=== PATIENT | male | born 1965 | race Caucasian/White ===

== ENCOUNTER 2020-06-06 12:39 | Inpatient (IN) | payer OTHER ==
--- NOTE | 2020-06-06 13:11 | BHS.RME ---
Substance Use & Tx History - Substance Use History Heroin Substance amount: 1 bundle Frequency of use: Daily Substance route: Oral Date of Last Use: 06/05/20 Nicotine Substance amount: 1 pack Frequency of use: Daily Date of Last Use: 06/06/20 Physical/Psych/Mental Status - Behavior General Behavior: Increased activity (restlessness, agitation) Eye Contact: Normal - Cooperativeness Cooperativeness: Cooperative - Thinking Thought Processes: Tight, Logical, Goal Directed - Physical Health Problems Is patient presently having any pain?: No Does patient presently have any injuries (include location): No Does patient currently have a fever: No Is patient : No COWS - Scale Resting Pulse: 1= [place] 81-100 Sweatin= Beads of Sweat on Face Restless Observation: 1= Difficult to Sit Still Pupil Size: 1= Pupils >than Normal Bone or Joint Aches: 4=Acute Joint/Muscle Pain Runny Nose/ Eye Tearin= Runny Nose/Eyes GI Upset > 30mins: 0= None Tremor Observation: 2= Slight Tremor Visible Yawning Observation: 2= >3x During Session Anxiety or Irritability: 2=Irritable/Anxious Goose Flesh Skin: 3=Piloerection COWS Score: 21
--- NOTE | 2020-06-06 13:46 | HP ---
COWS - Scale Resting Pulse: 1= [place] 81-100 Sweatin= Beads of Sweat on Face Restless Observation: 1= Difficult to Sit Still Pupil Size: 1= Pupils >than Normal Bone or Joint Aches: 4=Acute Joint/Muscle Pain Runny Nose/ Eye Tearin= Runny Nose/Eyes GI Upset > 30mins: 0= None Tremor Observation: 2= Slight Tremor Visible Yawning Observation: 2= >3x During Session Anxiety or Irritability: 2=Irritable/Anxious Goose Flesh Skin: 3=Piloerection COWS Score: 21 CIWA Score - Admission Criteria OASAS Guidelines: Admission for Medically Managed Detox: Requires at least one of the followin. CIWA greater than 12 2. Seizures within the past 24 hours 3. Delirium tremens within the past 24 hours 4. Hallucinations within the past 24 hours 5. Acute intervention needed for co occurring medical disorder 6. Acute intervention needed for co occurring psychiatric disorder 7. Severe withdrawal that cannot be handled at a lower level of care (continued vomiting, continued diarrhea, abnormal vital signs) requiring intravenous medication and/or fluids 8. Admitting History and Physical - Admission Chief Complaint: Mr. Floyd is a 54 yo man who presents to [facility] stating "I want to get off this shit for good". History of Present Illness: Mr. Floyd is a 54 yo man who presents to [facility] stating "I want to get off this shit for good". She has had intermittent relapses since 2009.. He was at [facility] today after passing out in [place] with no meds. PMH: HTN, HLD, COPD, JANELLE, DM, GERD PSH: none Psych: insomnia SOC: homeless on streets Legal: none - Substance Use History Heroin Substance amount: 1 bundle Frequency of use: Daily Substance route: Oral Date of Last Use: 06/05/20 Began age 19y. No ODs. No Narcan at home Nicotine Substance amount: 1 pack Frequency of use: Daily Date of Last Use: 06/06/20 Fist use age 19y. Methadone program: 185 mg in 2006: [facility]. States someone recently gave him some Suboxone program until March of this year when he said "fuck it" Patient Name: Padilla Floyd Date: 1965 Address: [address] [place] [address] Sex: Male Rx Written Rx Dispensed Drug Quantity Days Supply Prescriber Name Payment Method Dispenser 03/31/2020 03/31/2020 buprenorphine-naloxone 8-2 mg sl film 90 30 Latrice Loveica Insurance [employer] #[id number] 03/04/2020 03/04/2020 buprenorphine-naloxone 8-2 mg sl tablet 30 30 Philippe Duque) Insurance [facility] 02/04/2020 02/06/2020 buprenorphine-naloxone 8-2 mg sl film 63 21 Ziemba Perfecto, [place] Insurance [employer] #[id number] 01/11/2020 01/17/2020 buprenorphine-naloxone 8-2 mg sl film 3 3 Orville Lester MD Insurance [employer] #[id number] 12/24/2019 12/24/2019 buprenorphine-naloxone 8-2 mg sl film 45 15 Zisarah [place], [place] Insurance [employer] #[id number] 12/10/2019 12/11/2019 buprenorphine-naloxone 8-2 mg sl film 45 15 Christopher Cobb Shine Insurance [employer]ade #[id number] History Source: Patient Limitations to Obtaining History: No Limitations Admission ROS [facility] Allergies/Adverse Reactions: Allergies Allergy/AdvReac Type Severity Reaction Status Date / Time No Known Allergies Allergy Verified 06/06/20 15:25 Exam Limitations: No Limitations - Ebola screening Have you traveled outside of the country in the last 21 days: No Have you been sick,other than usual withdrawal symptoms: No Do you have a fever: No - Review of Systems Constitutional: Unintentional Wgt. Loss (30 lb in 2 mos) EENT: reports: No Symptoms Reported Respiratory: reports: SOB with Exertion (hx COPD) Cardiac: reports: No Symptoms Reported GI: reports: Diarrhea, Nausea : reports: No Symptoms Reported Musculoskeletal: reports: Back Pain (chronic) Integumentary: reports: No Symptoms Reported Neuro: reports: Headache Endocrine: reports: Other (no home glucose testing done) Hematology: reports: No Symptoms Reported Psychiatric: reports: Anxious Patient History - Smoking Cessation Smoking history: Current every day smoker Have you smoked in the past 12 months: Yes Aproximately how many cigarettes per day: 20 Hx Chewing Tobacco Use: No Initiated information on smoking cessation: Yes 'Breaking Loose' booklet given: 06/06/20 - Substances abused Heroin Substance route: Injection Frequency: Daily Amount used: 10-12 BAGS Age of first use: 19 Date of last use: 06/04/20 Admission Physical Exam [facility] - Physical General Appearance: Yes: Nourished, Mild Distress HEENTM: Yes: EOMI, Hearing grossly Normal, Normocephalic, Normal Voice Respiratory: Yes: Lungs Clear, Normal Breath Sounds Neck: Yes: Within Normal Limits, Supple Breast: Yes: Breast Exam Deferred Cardiology: Yes: Regular Rhythm, Regular Rate, S1, S2 Abdominal: Yes: Normal Bowel Sounds, Non Tender, Flat Back: Yes: Normal Inspection Musculoskeletal: Yes: Gait Steady Extremities: Yes: Normal Inspection, Non-Tender Neurological: Yes: Alert, Normal Response Integumentary: Yes: Within Normal Limits - Diagnostic (1) Opioid dependence with withdrawal Current Visit: Yes Status: Acute (2) HTN (hypertension) Current Visit: No Status: Chronic (3) HLD (hyperlipidemia) Current Visit: No Status: Chronic (4) COPD (chronic obstructive pulmonary disease) Current Visit: No Status: Chronic Qualifiers: COPD type: unspecified COPD Qualified Code(s): J44.9 - Chronic obstructive pulmonary disease, unspecified (5) Seasonal allergies Current Visit: No Status: Chronic (6) Diabetes type 2, controlled Current Visit: Yes Status: Chronic (7) GERD (gastroesophageal reflux disease) Current Visit: No Status: Chronic Cleared for Admission [facility] - Detox or Rehab [facility] Level of Care: Medically Managed Detox Regimen/Protocol: Methadone Inpatient Rehab Admission - Rehab Decision to Admit Inpatient rehab admission?: No
[2020-06-06 15:31] VITALS: BMI 25.2
[2020-06-06] MEDS ORDERED: NICOTINE POLACRILEX 2 MG GUM BUC PRN (15:58)
[2020-06-06] MEDS ORDERED: ACETAMINOPHEN 325 MG TABLET (FP) PO PRN ×2 (15:58)
[2020-06-06] MEDS ORDERED: ONDANSETRON *ODT* 4 MG TABLET SL PRN (15:58)
[2020-06-06] MEDS ORDERED: MAG HYDROX/AL HYDROX/SIMETH 30 ML UNIT-DOSE CUP PO PRN (15:58)
[2020-06-06] MEDS ORDERED: MENTHOL/PHENOL 1 EACH UD MM PRN (15:58)
[2020-06-06] MEDS ORDERED: BISMUTH SUBSALICYLATE 524 MG/30 ML UD PO PRN (15:58)
[2020-06-06] MEDS ORDERED: MAGNESIUM HYDROX 2400MG/30ML ORAL SUSPENSION 30 ML CUP PO PRN (15:58)
[2020-06-06] MEDS ORDERED: METHADONE HCL 10 MG TABLET (FOR DETOX USE ONLY) PO ONE (15:58)
[2020-06-06] MEDS ORDERED: MAGNESIUM CITRATE 300 ML BOTTLE PO PRN (15:58)
[2020-06-06] MEDS: INSULIN SLIDING SCALE (NOVOLOG) 1 VIAL SQ SCH ×2 (17:50→21:36)
[2020-06-06] MEDS: NICOTINE 21 MG/24 HOURS TOPICAL PATCH TD SCH (18:18)
[2020-06-06] MEDS: hydrOXYzine PAMOATE 25 MG CAPSULE (FP) PO SCH ×2 (18:20→21:34)
[2020-06-06] MEDS: THIAMINE HCL 100 MG TABLET (FP) PO SCH (21:34)
[2020-06-06] MEDS: cloNIDine HCL 0.1 MG TABLET PO PRN (21:34)
[2020-06-06] MEDS: MELATONIN 5 MG TABLETS PO SCH (21:35)
[2020-06-07] MEDS: hydrOXYzine PAMOATE 25 MG CAPSULE (FP) PO SCH ×5 (05:54→21:03)
[2020-06-07] MEDS: INSULIN SLIDING SCALE (NOVOLOG) 1 VIAL SQ SCH ×4 (07:55→21:07)
[2020-06-07] MEDS ORDERED: INSULIN SLIDING SCALE (NOVOLOG) 1 VIAL SQ ONE (07:57)
[2020-06-07] MEDS ORDERED: METHADONE HCL 5 MG TABLET (FOR DETOX USE ONLY) ONE (09:32)
[2020-06-07] MEDS ORDERED: METHADONE HCL 10 MG TABLET (FOR DETOX USE ONLY) ONE (09:33)
[2020-06-07] MEDS ORDERED: METHADONE (DETOX) 20 MG, METHADONE (DETOX) 5 MG PO ONE (10:00)
[2020-06-07 10:28] LABS: HEMATOCRIT 38.9 % (35.4-49); HEMOGLOBIN 13.5 GM/dL (11.7-16.9); MCH 30.9 pg (25.7-33.7); MCHC 34.7 g/dl (32.0-35.9); MEAN PLT VOLUME 8.9 fl (7.5-11.1); PLATELET COUNT 61 K/MM3 (134-434); RBC 4.37 M/mm3 (4.00-5.60); RDW 13.9 % (11.9-15.9); WHITE BLOOD COUNT 4.8 K/mm3 (4.0-10.0)
[2020-06-07] MEDS: NICOTINE 21 MG/24 HOURS TOPICAL PATCH TD SCH (10:29)
[2020-06-07] MEDS: PRENATAL VITAMINS W/ FOLIC ACID TABLET (FP) PO SCH (10:29)
[2020-06-07] MEDS: diazePAM 5 MG TABLET PO PRN ×3 (10:30→19:36)
[2020-06-07 10:39] LABS: ALBUMIN 3.3 g/dl (3.4-5.0); BLOOD UREA NITROGEN 13.1 mg/dL (7-18); POTASSIUM 3.5 mmol/L (3.5-5.1)
[2020-06-07 10:44] LABS: BILIRUBIN,TOTAL 0.8 mg/dL (0.2-1); CREATININE 0.7 mg/dL (0.55-1.3); TOT PROT 6.9 g/dl (6.4-8.2)
--- NOTE | 2020-06-07 11:19 | PN ---
S COWS - Scale Resting Pulse: 1= [place] 81-100 Sweatin= No chills or Flushing Restless Observation: 1= Difficult to Sit Still Pupil Size: 1= Pupils >than Normal Bone or Joint Aches: 2= Severe Diffuse Aches Runny Nose/ Eye Tearin= Runny Nose/Eyes GI Upset > 30mins: 3= Vomiting/Diarrhea Tremor Observation of Outstretched Hands: 2= Slight Tremor Visible Yawning Observation: 1= 1-2x During Session Anxiety or Irritability: 2=Irritable/Anxious Goose Flesh Skin: 0=Smooth Skin COWS Score: 15 S Progress Note (SOAP) Subjective: alert,irritable,anxious,interrupted sleep,tremor,pain in the body and ba ck,nausea,diarrhea Objective: 06/07/20 11:15 Vital Signs Temperature 97.4 F L 06/07/20 08:52 Pulse Rate 82 06/07/20 08:52 Respiratory Rate 20 06/07/20 08:52 Blood Pressure 150/75 06/07/20 08:52 O2 Sat by Pulse Oximetry (%) 98 06/07/20 06:33 06/07/20 11:15 Laboratory Last Values WBC 4.8 K/mm3 (4.0-10.0) 06/07/20 08:00 RBC 4.37 M/mm3 (4.00-5.60) 06/07/20 08:00 Hgb 13.5 GM/dL (11.7-16.9) 06/07/20 08:00 Hct 38.9 % (35.4-49) 06/07/20 08:00 MCV 89.0 fl (80-96) 06/07/20 08:00 MCH 30.9 pg (25.7-33.7) 06/07/20 08:00 MCHC 34.7 g/dl (32.0-35.9) 06/07/20 08:00 RDW 13.9 % (11.9-15.9) 06/07/20 08:00 Plt Count 61 K/MM3 (134-434) L 06/07/20 08:00 MPV 8.9 fl (7.5-11.1) 06/07/20 08:00 Sodium 138 mmol/L (136-145) 06/07/20 08:00 Potassium 3.5 mmol/L (3.5-5.1) 06/07/20 08:00 Chloride 103 mmol/L (98-107) 06/07/20 08:00 Carbon Dioxide 27 mmol/L (21-32) 06/07/20 08:00 Anion Gap 7 MMOL/L (8-16) L 06/07/20 08:00 BUN 13.1 mg/dL (7-18) 06/07/20 08:00 Creatinine 0.7 mg/dL (0.55-1.3) 06/07/20 08:00 Est GFR (CKD-EPI)AfAm 124.00 06/07/20 08:00 Est GFR (CKD-EPI)NonAf 106.99 06/07/20 08:00 POC Glucometer 175 UNITS (80-120) 06/07/20 05:53 Random Glucose 168 mg/dL (74-106) H 06/07/20 08:00 Calcium 9.0 mg/dL (8.5-10.1) 06/07/20 08:00 Total Bilirubin 0.8 mg/dL (0.2-1) 06/07/20 08:00 AST 29 U/L (15-37) 06/07/20 08:00 ALT 30 U/L (13-61) 06/07/20 08:00 Alkaline Phosphatase 64 U/L (45-117) 06/07/20 08:00 Total Protein 6.9 g/dl (6.4-8.2) 06/07/20 08:00 Albumin 3.3 g/dl (3.4-5.0) L 06/07/20 08:00 Assessment: 06/07/20 11:15 withdrawal symptom Plan: continue detox methadone regimen,to add valium 10 mgs po q 4hrs prn for severe withdrawal,,bgm monitoring with insulin coverage
--- NOTE | 2020-06-07 12:13 | EKG ---
Test Reason : Blood Pressure : / mmHG Vent. Rate : 077 BPM Atrial Rate : 077 BPM P-R Int : 164 ms QRS Dur : 102 ms QT Int : 390 ms P-R-T Axes : 072 012 050 degrees QTc Int : 441 ms NORMAL SINUS RHYTHM NORMAL ECG NO PREVIOUS ECGS AVAILABLE Confirmed by MD Diaz Daniel ([id number]) on 06/07/2020 12:12:56 PM Referred By: Confirmed By:Hector Diaz MD
[2020-06-07] MEDS: cloNIDine HCL 0.1 MG TABLET PO PRN ×2 (13:18→21:03)
[2020-06-07] MEDS: THIAMINE HCL 100 MG TABLET (FP) PO SCH (21:03)
[2020-06-07] MEDS: MELATONIN 5 MG TABLETS PO SCH (22:43)
[2020-06-08] MEDS: diazePAM 5 MG TABLET PO PRN ×5 (01:07→20:33)
[2020-06-08] MEDS: hydrOXYzine PAMOATE 25 MG CAPSULE (FP) PO SCH ×2 (05:37→09:46)
[2020-06-08] MEDS: INSULIN SLIDING SCALE (NOVOLOG) 1 VIAL SQ SCH ×4 (07:48→21:36)
[2020-06-08] MEDS: PRENATAL VITAMINS W/ FOLIC ACID TABLET (FP) PO SCH (09:44)
[2020-06-08] MEDS: NICOTINE 21 MG/24 HOURS TOPICAL PATCH TD SCH (09:44)
[2020-06-08] MEDS ORDERED: METHADONE HCL 10 MG TABLET (FOR DETOX USE ONLY) PO ONE (10:00)
--- NOTE | 2020-06-08 11:26 | PN ---
BHS COWS - Scale Resting Pulse: 0= FL 80 or Below Sweatin= Chills/Flushing Restless Observation: 1= Difficult to Sit Still Pupil Size: 0= Normal to Room Light Bone or Joint Aches: 1= Mild Discomfort Runny Nose/ Eye Tearin= Runny Nose/Eyes GI Upset > 30mins: 0= None Tremor Observation of Outstretched Hands: 1= Tremor [place], Not Seen Yawning Observation: 1= 1-2x During Session Anxiety or Irritability: 2=Irritable/Anxious Goose Flesh Skin: 0=Smooth Skin COWS Score: 9 BHS Progress Note (SOAP) Subjective: sweats shakes irritable agitation restless body aches Objective: 06/08/20 11:23 Vital Signs Temperature 99.1 F 06/08/20 08:49 Pulse Rate 67 06/08/20 08:49 Respiratory Rate 18 06/08/20 08:49 Blood Pressure 151/73 06/08/20 08:49 O2 Sat by Pulse Oximetry (%) 100 06/08/20 05:27 Laboratory Tests 06/06/20 06/06/20 06/06/20 15:50 16:40 21:30 WBC RBC Hgb Hct MCV MCH MCHC RDW Plt Count MPV Sodium Potassium Chloride Carbon Dioxide Anion Gap BUN Creatinine Est GFR (CKD-EPI)AfAm Est GFR (CKD-EPI)NonAf POC Glucometer 267 174 194 Random Glucose Calcium Total Bilirubin AST ALT Alkaline Phosphatase Total Protein Albumin Syphilis Serology HIV Ag/Ab Combo Qual 06/07/20 06/07/20 06/07/20 05:53 08:00 08:00 WBC RBC Hgb Hct MCV MCH MCHC RDW Plt Count MPV Sodium Potassium Chloride Carbon Dioxide Anion Gap BUN Creatinine Est GFR (CKD-EPI)AfAm Est GFR (CKD-EPI)NonAf POC Glucometer 175 Random Glucose Calcium Total Bilirubin AST ALT Alkaline Phosphatase Total Protein Albumin Syphilis Serology Non-reactive HIV Ag/Ab Combo Qual Negative 06/07/20 06/07/20 06/07/20 08:00 08:00 11:53 WBC 4.8 RBC 4.37 Hgb 13.5 Hct 38.9 MCV 89.0 MCH 30.9 MCHC 34.7 RDW 13.9 Plt Count 61 L MPV 8.9 Sodium 138 Potassium 3.5 Chloride 103 Carbon Dioxide 27 Anion Gap 7 L BUN 13.1 Creatinine 0.7 Est GFR (CKD-EPI)AfAm 124.00 Est GFR (CKD-EPI)NonAf 106.99 POC Glucometer 151 Random Glucose 168 H Calcium 9.0 Total Bilirubin 0.8 AST 29 ALT 30 Alkaline Phosphatase 64 Total Protein 6.9 Albumin 3.3 L Syphilis Serology HIV Ag/Ab Combo Qual 06/07/20 06/07/20 06/08/20 16:25 20:55 05:35 WBC RBC Hgb Hct MCV MCH MCHC RDW Plt Count MPV Sodium Potassium Chloride Carbon Dioxide Anion Gap BUN Creatinine Est GFR (CKD-EPI)AfAm Est GFR (CKD-EPI)NonAf POC Glucometer 192 215 151 Random Glucose Calcium Total Bilirubin AST ALT Alkaline Phosphatase Total Protein Albumin Syphilis Serology HIV Ag/Ab Combo Qual labs noted aaox3 ambulating no acute distress hypertension noted; pt has been non-compliant with taking his hypertension medication. pt states has not been taking any medication in 4months. pt was advised will start with HTN mediation while in our care. pt in agreement Assessment: 06/08/20 11:25 withdrawals Plan: continue detox lisinopril ordered norvasc ordered increase fluids
[2020-06-08] MEDS: LISINOPRIL 10 MG TABLET (FP) PO SCH (12:51)
[2020-06-08] MEDS: amLODIPine BESYLATE 5 MG TABLET (FP) PO SCH (12:51)
[2020-06-08] MEDS: cloNIDine HCL 0.1 MG TABLET PO PRN (16:41)
[2020-06-08] MEDS: hydrOXYzine PAMOATE 25 MG CAPSULE (FP) PO PRN (16:41)
[2020-06-08] MEDS: METHOCARBAMOL 500 MG TABLET PO PRN (20:33)
[2020-06-08] MEDS: THIAMINE HCL 100 MG TABLET (FP) PO SCH (21:36)
[2020-06-08] MEDS: MELATONIN 5 MG TABLETS PO SCH (21:36)
[2020-06-09] MEDS: diazePAM 5 MG TABLET PO PRN ×5 (00:53→18:43)
[2020-06-09] MEDS: IBUPROFEN 400 MG TABLET (FP) PO PRN ×3 (05:50→18:43)
[2020-06-09] MEDS ORDERED: INSULIN SLIDING SCALE (NOVOLOG) 1 VIAL SQ ONE ×2 (07:25→11:01)
[2020-06-09] MEDS: INSULIN SLIDING SCALE (NOVOLOG) 1 VIAL SQ SCH ×4 (07:26→21:30)
[2020-06-09] MEDS: METHOCARBAMOL 500 MG TABLET PO PRN ×2 (08:38→14:46)
[2020-06-09] MEDS: hydrOXYzine PAMOATE 25 MG CAPSULE (FP) PO PRN ×3 (08:38→19:29)
[2020-06-09] MEDS ORDERED: METHADONE HCL 5 MG TABLET (FOR DETOX USE ONLY) ONE (09:22)
[2020-06-09] MEDS ORDERED: METHADONE HCL 10 MG TABLET (FOR DETOX USE ONLY) ONE (09:22)
[2020-06-09] MEDS ORDERED: METHADONE (DETOX) 10 MG, METHADONE (DETOX) 5 MG PO ONE (10:00)
[2020-06-09] MEDS: amLODIPine BESYLATE 5 MG TABLET (FP) PO SCH (10:45)
[2020-06-09] MEDS: LISINOPRIL 10 MG TABLET (FP) PO SCH (10:45)
[2020-06-09] MEDS: PRENATAL VITAMINS W/ FOLIC ACID TABLET (FP) PO SCH (10:45)
[2020-06-09] MEDS: NICOTINE 21 MG/24 HOURS TOPICAL PATCH TD SCH (10:46)
--- NOTE | 2020-06-09 11:10 | PN ---
BHS COWS - Scale Resting Pulse: 0= [place] 80 or Below Sweatin= Chills/Flushing Restless Observation: 0= Sits Still Pupil Size: 0= Normal to Room Light Bone or Joint Aches: 2= Severe Diffuse Aches Runny Nose/ Eye Tearin= None GI Upset > 30mins: 0= None Tremor Observation of Outstretched Hands: 1= Tremor [place], Not Seen Yawning Observation: 0= None Anxiety or Irritability: 1=Feels Anxious/Irritable Goose Flesh Skin: 0=Smooth Skin COWS Score: 5 BHS Progress Note (SOAP) Subjective: body aches tired weak interrupted sleep Objective: 06/09/20 11:08 Vital Signs Temperature 98.1 F 06/09/20 08:35 Pulse Rate 79 06/09/20 08:35 Respiratory Rate 17 06/09/20 08:35 Blood Pressure 131/81 06/09/20 08:35 O2 Sat by Pulse Oximetry (%) 100 06/09/20 05:35 Laboratory Tests 06/06/20 06/06/20 06/06/20 09:45 15:50 16:40 WBC RBC Hgb Hct MCV MCH MCHC RDW Plt Count MPV Sodium Potassium Chloride Carbon Dioxide Anion Gap BUN Creatinine Est GFR (CKD-EPI)AfAm Est GFR (CKD-EPI)NonAf POC Glucometer 267 174 Random Glucose Calcium Total Bilirubin AST ALT Alkaline Phosphatase Total Protein Albumin Syphilis Serology COVID-19 (ANGEL) Not detected HIV Ag/Ab Combo Qual 06/06/20 06/07/20 06/07/20 21:30 05:53 08:00 WBC RBC Hgb Hct MCV MCH MCHC RDW Plt Count MPV Sodium Potassium Chloride Carbon Dioxide Anion Gap BUN Creatinine Est GFR (CKD-EPI)AfAm Est GFR (CKD-EPI)NonAf POC Glucometer 194 175 Random Glucose Calcium Total Bilirubin AST ALT Alkaline Phosphatase Total Protein Albumin Syphilis Serology COVID-19 (ANGEL) HIV Ag/Ab Combo Qual Negative 06/07/20 06/07/20 06/07/20 08:00 08:00 08:00 WBC 4.8 RBC 4.37 Hgb 13.5 Hct 38.9 MCV 89.0 MCH 30.9 MCHC 34.7 RDW 13.9 Plt Count 61 L MPV 8.9 Sodium 138 Potassium 3.5 Chloride 103 Carbon Dioxide 27 Anion Gap 7 L BUN 13.1 Creatinine 0.7 Est GFR (CKD-EPI)AfAm 124.00 Est GFR (CKD-EPI)NonAf 106.99 POC Glucometer Random Glucose 168 H Calcium 9.0 Total Bilirubin 0.8 AST 29 ALT 30 Alkaline Phosphatase 64 Total Protein 6.9 Albumin 3.3 L Syphilis Serology Non-reactive COVID-19 (ANGEL) HIV Ag/Ab Combo Qual 06/07/20 06/07/20 06/07/20 11:53 16:25 20:55 WBC RBC Hgb Hct MCV MCH MCHC RDW Plt Count MPV Sodium Potassium Chloride Carbon Dioxide Anion Gap BUN Creatinine Est GFR (CKD-EPI)AfAm Est GFR (CKD-EPI)NonAf POC Glucometer 151 192 215 Random Glucose Calcium Total Bilirubin AST ALT Alkaline Phosphatase Total Protein Albumin Syphilis Serology COVID-19 (ANGEL) HIV Ag/Ab Combo Qual 06/08/20 06/08/20 06/08/20 05:35 11:50 16:34 WBC RBC Hgb Hct MCV MCH MCHC RDW Plt Count MPV Sodium Potassium Chloride Carbon Dioxide Anion Gap BUN Creatinine Est GFR (CKD-EPI)AfAm Est GFR (CKD-EPI)NonAf POC Glucometer 151 226 218 Random Glucose Calcium Total Bilirubin AST ALT Alkaline Phosphatase Total Protein Albumin Syphilis Serology COVID-19 (ANGEL) HIV Ag/Ab Combo Qual 06/08/20 06/09/20 06/09/20 20:37 05:49 10:50 WBC RBC Hgb Hct MCV MCH MCHC RDW Plt Count MPV Sodium Potassium Chloride Carbon Dioxide Anion Gap BUN Creatinine Est GFR (CKD-EPI)AfAm Est GFR (CKD-EPI)NonAf POC Glucometer 250 157 157 Random Glucose Calcium Total Bilirubin AST ALT Alkaline Phosphatase Total Protein Albumin Syphilis Serology COVID-19 (ANGEL) HIV Ag/Ab Combo Qual labs noted aaox3 ambulating no acute distress Assessment: 06/09/20 11:09 mild withdrawals Plan: continue detox increase fluids encouraged to get OOB and shower.
--- NOTE | 2020-06-09 20:17 | PN ---
[facility] CIWA - CIWA Score Nausea/Vomitin-Mild Nausea/No Vomiting (pt was placed on 1:1 observation for reported suicidal ideation with no plan or intent.) Muscle Tremors: 4-Moderate,w/Arms Extend Anxiety: 6 Agitation: 4-Moderately Restless Paroxysmal Sweats: No Perspiration Orientation: 1-Uncertain about Date Tacttile Disturbances: 0-None Auditory Disturbances: 1-Very Mild Visual Disturbances: 3-Moderate Sensitivity Headache: 3-Moderate CIWA-Ar Total Score: 23 S Progress Note (SOAP) Subjective: pt reports tremors ,WERNER , nausea , photophobia, no improvement in symptoms since admission . Pt endorses 1 pint/day alcohol x 1 year , reports tremors if not drinking alcohol, denies blackouts or seizures . Pt states he is feeling " awful , I want to " . per pt , he used to have rx for Seroquel 300 mg in the past and is interested in re-starting it. PMHX PMH: HTN, HLD, COPD, DM, GERD Active Medications Acetaminophen (Tylenol -) 650 mg PO Q6H PRN PRN Reason: PAIN LEVEL 4 - 6 Acetaminophen (Tylenol -) 650 mg PO Q6H PRN PRN Reason: FEVER Al Hydroxide/Mg Hydroxide (Mylanta Oral Suspension -) 30 ml PO Q6H PRN PRN Reason: DYSPEPSIA Amlodipine Besylate (Norvasc -) 5 mg PO DAILY [facility] Last Admin: 06/09/20 10:45 Dose: 5 mg Documented by: Bismuth Subsalicylate (Pepto-Bismol -) 524 mg PO Q1H PRN PRN Reason: DIARRHEA Diazepam (Valium -) 10 mg PO Q4H PRN PRN Reason: WITHDRAWAL(CONT SUBST) Stop: 06/10/20 09:11 Last Admin: 06/09/20 18:43 Dose: 10 mg Documented by: Eucalyptus/Menthol/Phenol/Sorbitol (Cepastat Lozenge -) 1 each MM Q4H PRN PRN Reason: SORE THROAT Stop: 06/12/20 15:58 Hydroxyzine Pamoate (Vistaril -) 25 mg PO Q4HWA PRN PRN Reason: AGITATION Stop: 06/12/20 15:58 Last Admin: 07/09/20 19:29 Dose: 25 mg Documented by: Ibuprofen (Motrin -) 400 mg PO Q6H PRN PRN Reason: PAIN LEVEL 1 - 3 Last Admin: 06/09/20 18:43 Dose: 400 mg Documented by: Insulin Aspart (Novolog Vial Sliding Scale -) 1 vial SQ [facility]; Protocol Last Admin: 06/09/20 17:05 Dose: 6 units Documented by: Lisinopril (Prinivil) 10 mg PO DAILY [facility] Last Admin: 06/09/20 10:45 Dose: 10 mg Documented by: Magnesium Citrate (Citroma -) 300 ml PO Q48H PRN PRN Reason: CONSTIPATION Magnesium Hydroxide (Milk Of Magnesia -) 30 ml PO PRN PRN PRN Reason: CONSTIPATION Melatonin (Melatonin) 5 mg PO [facility] Last Admin: 06/08/20 21:36 Dose: 5 mg Documented by: Methadone HCl (Dolophine -) 5 mg PO ONCE@0600 ONE Stop: 06/11/20 06:01 Methadone HCl (Dolophine -) 10 mg PO ONCE ONE Stop: 06/10/20 10:01 Methocarbamol (Robaxin -) 500 mg PO Q6H PRN PRN Reason: MUSCLE SPASMS Stop: 06/12/20 15:58 Last Admin: 06/09/20 14:46 Dose: 500 mg Documented by: Nicotine (Nicoderm Patch -) 21 mg TD DAILY [facility] Last Admin: 06/09/20 10:46 Dose: 21 mg Documented by: Nicotine Polacrilex (Nicorette Gum -) 2 mg BUC Q2H PRN PRN Reason: NICOTINE REPLACEMENT RX Ondansetron HCl (Zofran Odt -) 4 mg SL TID PRN PRN Reason: Nausea/Vomiting Stop: 06/12/20 15:59 Multivit/Folic Acid/Iron ( Vitamins (Sjr) -) 1 tab PO DAILY [facility] Last Admin: 06/09/20 10:45 Dose: 1 tab Documented by: Quetiapine Fumarate (Seroquel -) 25 mg PO [facility] Thiamine HCl (Vitamin B1 -) 100 mg PO [facility] Last Admin: 06/08/20 21:36 Dose: 100 mg Documented by: Objective: Vital Signs - 24 hr 06/08/20 06/09/20 06/09/20 20:29 05:35 08:35 Temperature 97.3 F L 98.0 F 98.1 F Pulse Rate 65 65 79 Respiratory 20 20 17 Rate Blood Pressure 127/69 143/70 131/81 O2 Sat by Pulse 100 100 Oximetry (%) 06/09/20 06/09/20 12:45 17:08 Temperature 98.4 F 98.2 F Pulse Rate 72 67 Respiratory 18 18 Rate Blood Pressure 134/71 142/61 O2 Sat by Pulse 99 Oximetry (%) Laboratory Results - last 24 hr 06/06/20 06/08/20 06/09/20 09:45 20:37 05:49 POC Glucometer 250 157 COVID-19 (ANGEL) Not detected 06/09/20 06/09/20 10:50 16:38 POC Glucometer 157 290 COVID-19 (ANGEL) TREMORS FAM UE , LYING IN BED W/ LIGHTS OFF IN THE ROOM . IRRITABLE, ANXIOUS , RESTLESS . Assessment: AUD in acute withdrawal Plan: Librium detox STAT 50 mg Librium d/c DIAZEPAM Quetiapine 25 mg @ hs CONTINUE 1:1 monitoring , to be reassessed by psychiatry in the a.m.
[2020-06-09] MEDS ORDERED: chlordiazePOXIDE HCL 25 MG CAPSULE PO PRN (20:19)
[2020-06-09] MEDS ORDERED: chlordiazePOXIDE HCL 25 MG CAPSULE PO ONE (20:19)
[2020-06-09] MEDS ORDERED: QUEtiapine FUMARATE 25 MG TABLET PO SCH (22:00)
[2020-06-09 22:20] VITALS: BP 149/76; PULSE 81; TEMP 97.7
[2020-06-09] MEDS: chlordiazePOXIDE HCL 25 MG CAPSULE PO SCH (22:41)
[2020-06-09] MEDS: THIAMINE HCL 100 MG TABLET (FP) PO SCH (22:41)
[2020-06-09] MEDS: MELATONIN 5 MG TABLETS PO SCH (22:41)
--- NOTE | 2020-06-09 23:46 | PN ---
[facility] Progress Note Note: Patient is on 1:1 for suicidal ideation was to leaving the floor. He reports that he wants Seroquel 300mg tablet oral which was given to him in the COVID ship by the health officers. Patient reports that he was never prescribed the medication by a psychiatrist and has never seen any provider since March. Seroquel 25mg tablet was prescribed and patient was informed that he will see a psychiatrist this morning. He became loud, combative, threatening, agitated and disruptive. 911 was called with the police and patient was transferred to [facility]. Vital Signs Temperature 97.7 F 06/09/20 21:17 Pulse Rate 81 06/09/20 21:17 Respiratory Rate 19 06/09/20 21:17 Blood Pressure 149/76 06/09/20 21:17 O2 Sat by Pulse Oximetry (%) 99 06/09/20 21:17 Laboratory Last Values WBC 4.8 K/mm3 (4.0-10.0) 06/07/20 08:00 RBC 4.37 M/mm3 (4.00-5.60) 06/07/20 08:00 Hgb 13.5 GM/dL (11.7-16.9) 06/07/20 08:00 Hct 38.9 % (35.4-49) 06/07/20 08:00 MCV 89.0 fl (80-96) 06/07/20 08:00 MCH 30.9 pg (25.7-33.7) 06/07/20 08:00 MCHC 34.7 g/dl (32.0-35.9) 06/07/20 08:00 RDW 13.9 % (11.9-15.9) 06/07/20 08:00 Plt Count 61 K/MM3 (134-434) L 06/07/20 08:00 MPV 8.9 fl (7.5-11.1) 06/07/20 08:00 Sodium 138 mmol/L (136-145) 06/07/20 08:00 Potassium 3.5 mmol/L (3.5-5.1) 06/07/20 08:00 Chloride 103 mmol/L (98-107) 06/07/20 08:00 Carbon Dioxide 27 mmol/L (21-32) 06/07/20 08:00 Anion Gap 7 MMOL/L (8-16) L 06/07/20 08:00 BUN 13.1 mg/dL (7-18) 06/07/20 08:00 Creatinine 0.7 mg/dL (0.55-1.3) 06/07/20 08:00 Est GFR (CKD-EPI)AfAm 124.00 06/07/20 08:00 Est GFR (CKD-EPI)NonAf 106.99 06/07/20 08:00 POC Glucometer 249 UNITS (80-120) 06/09/20 21:13 Random Glucose 168 mg/dL (74-106) H 06/07/20 08:00 Calcium 9.0 mg/dL (8.5-10.1) 06/07/20 08:00 Total Bilirubin 0.8 mg/dL (0.2-1) 06/07/20 08:00 AST 29 U/L (15-37) 06/07/20 08:00 ALT 30 U/L (13-61) 06/07/20 08:00 Alkaline Phosphatase 64 U/L (45-117) 06/07/20 08:00 Total Protein 6.9 g/dl (6.4-8.2) 06/07/20 08:00 Albumin 3.3 g/dl (3.4-5.0) L 06/07/20 08:00 Syphilis Serology Non-reactive (NONREACTIVE) 06/07/20 08:00 COVID-19 (ANGEL) Not detected (Not Detected) 06/06/20 09:45 HIV Ag/Ab Combo Qual Negative (NEGATIVE) 06/07/20 08:00 Action: Patient transferred to [facility].
[2020-06-10] MEDS: INSULIN SLIDING SCALE (NOVOLOG) 1 VIAL SQ SCH ×2 (06:04→11:06)
[2020-06-10] MEDS: chlordiazePOXIDE HCL 25 MG CAPSULE PO SCH ×2 (06:04→11:05)
[2020-06-10] MEDS ORDERED: METHADONE HCL 10 MG TABLET (FOR DETOX USE ONLY) PO ONE (10:00)
--- NOTE | 2020-06-10 10:58 | PN ---
S Progress Note Note: Psychiatric nurse practitioner note: Patient not on unit. As per nursing and Nurse practitioner note, patient was transferred to [facility] after becoming agitated, disruptive and threatening staff.
[2020-06-10] MEDS: NICOTINE 21 MG/24 HOURS TOPICAL PATCH TD SCH (11:06)
[2020-06-10] MEDS: PRENATAL VITAMINS W/ FOLIC ACID TABLET (FP) PO SCH (11:06)
[2020-06-10] MEDS: amLODIPine BESYLATE 5 MG TABLET (FP) PO SCH (11:06)
[2020-06-10] MEDS: LISINOPRIL 10 MG TABLET (FP) PO SCH (11:06)
--- NOTE | 2020-06-10 13:47 | DS ---
[facility] Detox Discharge Summary Admission Date: 06/06/20 Discharge Date: 06/10/20 - History Present History: Opioid Dependence - Physical Exam Results Vital Signs: Vital Signs Temperature 97.7 F 06/09/20 21:17 Pulse Rate 81 06/09/20 21:17 Respiratory Rate 19 06/09/20 21:17 Blood Pressure 149/76 06/09/20 21:17 O2 Sat by Pulse Oximetry (%) 99 06/09/20 21:17 Pertinent Admission Physical Exam Findings: Vital Signs Temperature 97.7 F 06/09/20 21:17 Pulse Rate 81 06/09/20 21:17 Respiratory Rate 19 06/09/20 21:17 Blood Pressure 149/76 06/09/20 21:17 O2 Sat by Pulse Oximetry (%) 99 06/09/20 21:17 Laboratory Tests 06/06/20 06/06/20 06/06/20 09:45 15:50 16:40 WBC RBC Hgb Hct MCV MCH MCHC RDW Plt Count MPV Sodium Potassium Chloride Carbon Dioxide Anion Gap BUN Creatinine Est GFR (CKD-EPI)AfAm Est GFR (CKD-EPI)NonAf POC Glucometer 267 174 Random Glucose Calcium Total Bilirubin AST ALT Alkaline Phosphatase Total Protein Albumin Syphilis Serology COVID-19 (ANGEL) Not detected HIV Ag/Ab Combo Qual 06/06/20 06/07/20 06/07/20 21:30 05:53 08:00 WBC RBC Hgb Hct MCV MCH MCHC RDW Plt Count MPV Sodium Potassium Chloride Carbon Dioxide Anion Gap BUN Creatinine Est GFR (CKD-EPI)AfAm Est GFR (CKD-EPI)NonAf POC Glucometer 194 175 Random Glucose Calcium Total Bilirubin AST ALT Alkaline Phosphatase Total Protein Albumin Syphilis Serology COVID-19 (ANGEL) HIV Ag/Ab Combo Qual Negative 06/07/20 06/07/20 06/07/20 08:00 08:00 08:00 WBC 4.8 RBC 4.37 Hgb 13.5 Hct 38.9 MCV 89.0 MCH 30.9 MCHC 34.7 RDW 13.9 Plt Count 61 L MPV 8.9 Sodium 138 Potassium 3.5 Chloride 103 Carbon Dioxide 27 Anion Gap 7 L BUN 13.1 Creatinine 0.7 Est GFR (CKD-EPI)AfAm 124.00 Est GFR (CKD-EPI)NonAf 106.99 POC Glucometer Random Glucose 168 H Calcium 9.0 Total Bilirubin 0.8 AST 29 ALT 30 Alkaline Phosphatase 64 Total Protein 6.9 Albumin 3.3 L Syphilis Serology Non-reactive COVID-19 (ANGEL) HIV Ag/Ab Combo Qual 06/07/20 06/07/20 06/07/20 11:53 16:25 20:55 WBC RBC Hgb Hct MCV MCH MCHC RDW Plt Count MPV Sodium Potassium Chloride Carbon Dioxide Anion Gap BUN Creatinine Est GFR (CKD-EPI)AfAm Est GFR (CKD-EPI)NonAf POC Glucometer 151 192 215 Random Glucose Calcium Total Bilirubin AST ALT Alkaline Phosphatase Total Protein Albumin Syphilis Serology COVID-19 (ANGEL) HIV Ag/Ab Combo Qual 06/08/20 06/08/20 06/08/20 05:35 11:50 16:34 WBC RBC Hgb Hct MCV MCH MCHC RDW Plt Count MPV Sodium Potassium Chloride Carbon Dioxide Anion Gap BUN Creatinine Est GFR (CKD-EPI)AfAm Est GFR (CKD-EPI)NonAf POC Glucometer 151 226 218 Random Glucose Calcium Total Bilirubin AST ALT Alkaline Phosphatase Total Protein Albumin Syphilis Serology COVID-19 (ANGEL) HIV Ag/Ab Combo Qual 06/08/20 06/09/20 06/09/20 20:37 05:49 10:50 WBC RBC Hgb Hct MCV MCH MCHC RDW Plt Count MPV Sodium Potassium Chloride Carbon Dioxide Anion Gap BUN Creatinine Est GFR (CKD-EPI)AfAm Est GFR (CKD-EPI)NonAf POC Glucometer 250 157 157 Random Glucose Calcium Total Bilirubin AST ALT Alkaline Phosphatase Total Protein Albumin Syphilis Serology COVID-19 (ANGEL) HIV Ag/Ab Combo Qual 06/09/20 06/09/20 16:38 21:13 WBC RBC Hgb Hct MCV MCH MCHC RDW Plt Count MPV Sodium Potassium Chloride Carbon Dioxide Anion Gap BUN Creatinine Est GFR (CKD-EPI)AfAm Est GFR (CKD-EPI)NonAf POC Glucometer 290 249 Random Glucose Calcium Total Bilirubin AST ALT Alkaline Phosphatase Total Protein Albumin Syphilis Serology COVID-19 (ANGEL) HIV Ag/Ab Combo Qual pt was sent to [facility] last night. pt has not returned. pt will be d/c from our system now. - Medication Discharge Medications: Ambulatory Orders NK [No Known Home Medication] 06/06/20 - Diagnosis (1) Opioid dependence with withdrawal Current Visit: Yes Status: Acute (2) Diabetes type 2, controlled Current Visit: Yes Status: Chronic (3) COPD (chronic obstructive pulmonary disease) Current Visit: No Status: Chronic Qualifiers: COPD type: unspecified COPD Qualified Code(s): J44.9 - Chronic obstructive pulmonary disease, unspecified (4) GERD (gastroesophageal reflux disease) Current Visit: No Status: Chronic (5) HLD (hyperlipidemia) Current Visit: No Status: Chronic (6) HTN (hypertension) Current Visit: No Status: Chronic (7) Seasonal allergies Current Visit: No Status: Chronic - AMA Did Patient Leave Against Medical Advice: No (pt sent to [facility])
[2020-06-11] MEDS ORDERED: chlordiazePOXIDE HCL 25 MG CAPSULE PO SCH (05:00)
[2020-06-11] MEDS ORDERED: METHADONE HCL 5 MG TABLET (FOR DETOX USE ONLY) PO ONE (06:00)
[2020-06-12] MEDS ORDERED: chlordiazePOXIDE HCL 10 MG CAPSULE PO PRN
[2020-06-12] MEDS ORDERED: chlordiazePOXIDE HCL 10 MG CAPSULE PO SCH (05:00)
[2020-06-13] MEDS ORDERED: chlordiazePOXIDE HCL 10 MG CAPSULE PO SCH (05:00)
[2020-06-14] MEDS ORDERED: chlordiazePOXIDE HCL 10 MG CAPSULE PO ONE (05:00)
== END 2020-06-10 14:10 | disposition short-term general hospital (02) | DRG 773 ==
LOC: YASAS 12:39 → Y6N 15:03
PROVIDERS: ADMIT Allergy & Immunology; ATTEND Allergy & Immunology
PROC: HZ2ZZZZ Detoxification Services for Substance Abuse Treatment (ICD-10-PCS; principal; 2020-06-06)
DX: F11.23 Opioid dependence with withdrawal (principal); F17.210 Nicotine dependence, cigarettes, uncomplicated; R45.851 Suicidal ideations; E11.9 Type 2 diabetes mellitus without complications; E78.5 Hyperlipidemia, unspecified; G47.00 Insomnia, unspecified; I10 Essential (primary) hypertension; J44.9 Chronic obstructive pulmonary disease, unspecified; J30.2 Other seasonal allergic rhinitis; K21.9 Gastro-esophageal reflux disease without esophagitis; Z59.0 Homelessness
CPT/HCPCS: 36415; 80053; 82962; 85027; 86780; 87389; 93005; 93010; J0735; U0003

== ENCOUNTER 2020-07-19 13:20 | Inpatient (IN) | payer OTHER ==
--- NOTE | 2020-07-19 14:33 | BHS.RME ---
Substance Use & Tx History - Substance Use History Alcohol Substance amount: 1 pint vodka Frequency of use: Daily Substance route: Oral Date of Last Use: 07/18/20 Heroin Substance amount: 12-14 bags Frequency of use: Daily Substance route: Inhalation (ex: sniffing or snorting), Injection (ex: intravenous or skin popping) Date of Last Use: 07/18/20 Nicotine Substance amount: 1 pack Frequency of use: Daily Substance route: Smoking Date of Last Use: 07/19/20 Physical/Psych/Mental Status - Behavior General Behavior: Increased activity (restlessness, agitation) Eye Contact: Normal - Cooperativeness Cooperativeness: Cooperative - Thinking Thought Processes: Tight, Logical, Goal Directed Thought content: Future oriented - Physical Health Problems Is patient presently having any pain?: No Does patient presently have any injuries (include location): No Does patient currently have a fever: No Is patient : No CIWA Nausea/Vomitin Muscle Tremors: 4-Moderate,w/Arms Extend Anxiety: 3 Agitation: 3 Paroxysmal Sweats: No Perspiration Orientation: 2-Disoriented Date<2 days Tacttile Disturbances: 2-Mild Itch/Numbness/Burn Auditory Disturbances: 0-None Visual Disturbances: 0-None Headache: 3-Moderate CIWA-Ar Total Score: 19
[2020-07-19 15:11] VITALS: BMI 25.4
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
[2020-07-19] MEDS ORDERED: NICOTINE POLACRILEX 2 MG GUM BUC PRN (16:09)
[2020-07-19] MEDS ORDERED: MAGNESIUM CITRATE 300 ML BOTTLE PO PRN (16:09)
[2020-07-19] MEDS ORDERED: IBUPROFEN 400 MG TABLET (FP) PO PRN (16:09)
[2020-07-19] MEDS ORDERED: METHOCARBAMOL 500 MG TABLET PO PRN (16:09)
[2020-07-19] MEDS ORDERED: MENTHOL/PHENOL 1 EACH UD MM PRN (16:09)
[2020-07-19] MEDS ORDERED: chlordiazePOXIDE HCL 25 MG CAPSULE PO PRN (16:09)
[2020-07-19] MEDS ORDERED: ACETAMINOPHEN 325 MG TABLET (FP) PO PRN ×2 (16:09)
[2020-07-19] MEDS ORDERED: BISMUTH SUBSALICYLATE 524 MG/30 ML UD PO PRN (16:09)
[2020-07-19] MEDS ORDERED: MAGNESIUM HYDROX 2400MG/30ML ORAL SUSPENSION 30 ML CUP PO PRN (16:09)
[2020-07-19] MEDS ORDERED: cloNIDine HCL 0.1 MG TABLET PO PRN (16:09)
[2020-07-19] MEDS ORDERED: MAG HYDROX/AL HYDROX/SIMETH 30 ML UNIT-DOSE CUP PO PRN (16:09)
[2020-07-19] MEDS ORDERED: ONDANSETRON *ODT* 4 MG TABLET SL ONE (16:30)
[2020-07-19] MEDS ORDERED: METHADONE HCL 10 MG TABLET (FOR DETOX USE ONLY) PO ONE (16:30)
[2020-07-19] MEDS ORDERED: ALBUTEROL SO4 HFA INHALER IH PRN (16:53)
[2020-07-19] MEDS: chlordiazePOXIDE HCL 25 MG CAPSULE PO SCH ×2 (17:11→22:13)
[2020-07-19] MEDS: NICOTINE 21 MG/24 HOURS TOPICAL PATCH TD SCH (17:16)
[2020-07-19] MEDS: INSULIN SLIDING SCALE (NOVOLOG) 1 VIAL SQ SCH (21:32)
[2020-07-19] MEDS ORDERED: INSULIN SLIDING SCALE (NOVOLOG) 1 VIAL SQ SCH (22:00)
[2020-07-19] MEDS: THIAMINE HCL 100 MG TABLET (FP) PO SCH (22:13)
[2020-07-19] MEDS: MELATONIN 5 MG TABLETS PO SCH (22:13)
[2020-07-20] MEDS: chlordiazePOXIDE HCL 25 MG CAPSULE PO SCH ×4 (06:21→22:33)
--- NOTE | 2020-07-20 09:24 | EKG ---
Test Reason : Blood Pressure : / mmHG Vent. Rate : 073 BPM Atrial Rate : 073 BPM P-R Int : 168 ms QRS Dur : 104 ms QT Int : 412 ms P-R-T Axes : 065 001 033 degrees QTc Int : 453 ms NORMAL SINUS RHYTHM NORMAL ECG WHEN COMPARED WITH ECG OF 06-JUN-2020 14:59, NO SIGNIFICANT CHANGE WAS FOUND Confirmed by Guilherme Thomas MD ([id number]) on 07/20/2020 9:23:40 AM Referred By: Confirmed By:Guilherme Thomas MD
[2020-07-20] MEDS ORDERED: METHADONE HCL 5 MG TABLET (FOR DETOX USE ONLY) ONE (09:31)
[2020-07-20] MEDS ORDERED: METHADONE HCL 10 MG TABLET (FOR DETOX USE ONLY) ONE (09:31)
[2020-07-20] MEDS ORDERED: METHADONE (DETOX) 20 MG, METHADONE (DETOX) 5 MG PO ONE (10:00)
--- NOTE | 2020-07-20 10:13 | PN ---
S CIWA - CIWA Score Nausea/Vomitin-Mild Nausea/No Vomiting Muscle Tremors: 3 Anxiety: 3 Agitation: 3 Paroxysmal Sweats: 3 Orientation: 0-Oriented Tacttile Disturbances: 0-None Auditory Disturbances: 0-None Visual Disturbances: 0-None Headache: 0-None Present CIWA-Ar Total Score: 13 BHS COWS - Scale Resting Pulse: 0= [place] 80 or Below Sweatin= Chills/Flushing Restless Observation: 1= Difficult to Sit Still Pupil Size: 0= Normal to Room Light Bone or Joint Aches: 2= Severe Diffuse Aches Runny Nose/ Eye Tearin= Runny Nose/Eyes GI Upset > 30mins: 0= None Tremor Observation of Outstretched Hands: 1= Tremor [place], Not Seen Yawning Observation: 2= >3x During Session Anxiety or Irritability: 2=Irritable/Anxious Goose Flesh Skin: 0=Smooth Skin COWS Score: 11 S Progress Note (SOAP) Subjective: sweats shakes body aches interrupted sleep agitation nausea irritable Objective: 07/20/20 10:15 Vital Signs Temperature 96.8 F L 07/20/20 05:43 Pulse Rate 64 07/20/20 05:43 Respiratory Rate 18 07/20/20 05:43 Blood Pressure 136/60 07/20/20 05:43 O2 Sat by Pulse Oximetry (%) 96 07/20/20 05:43 Laboratory Tests 07/19/20 07/19/20 07/19/20 15:30 16:29 21:16 POC Glucometer 262 336 COVID-19 (ANGEL) Not detected 07/20/20 06:20 POC Glucometer 295 COVID-19 (ANGEL) rest of labs pending aaox3 ambulating no acute distress Assessment: 07/20/20 10:15 withdrawals Plan: continue detox increase water intake glucerna with meals ordered pending labs
[2020-07-20] MEDS ORDERED: TRIMETHOBENZAMIDE HCL 300 MG CAPSULE PO PRN (10:16)
--- NOTE | 2020-07-20 10:47 | PN ---
Teaching Attending Note Name of Resident: Valentina Oconnell ATTENDING PHYSICIAN STATEMENT I saw and evaluated the patient. I reviewed the resident's note and discussed the case with the resident. I agree with the resident's findings and plan as documented. SUBJECTIVE: OBJECTIVE: ASSESSMENT AND PLAN: Agree with resident's plan for detox from alcohol and heroin.
[2020-07-20] MEDS: PRENATAL VITAMINS W/ FOLIC ACID TABLET (FP) PO SCH (10:55)
[2020-07-20] MEDS: NICOTINE 21 MG/24 HOURS TOPICAL PATCH TD SCH (10:56)
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
[2020-07-20] MEDS: INSULIN SLIDING SCALE (NOVOLOG) 1 VIAL SQ SCH ×4 (11:36→21:24)
[2020-07-20] MEDS ORDERED: INSULIN SLIDING SCALE (NOVOLOG) 1 VIAL SQ ONE (11:39)
[2020-07-20 12:16] LABS: HEMATOCRIT 35.7 % (35.4-49); HEMOGLOBIN 12.2 GM/dL (11.7-16.9); MCH 30.5 pg (25.7-33.7); MCHC 34.3 g/dl (32.0-35.9); MEAN CELL VOLUME 88.9 fl (80-96); MEAN PLT VOLUME 8.7 fl (7.5-11.1); PLATELET COUNT 62 K/MM3 (134-434); RBC 4.02 M/mm3 (4.00-5.60); RDW 15.3 % (11.9-15.9); WHITE BLOOD COUNT 4.1 K/mm3 (4.0-10.0)
[2020-07-20 12:21] LABS: ALBUMIN 3.1 g/dl (3.4-5.0); BILIRUBIN,TOTAL 0.2 mg/dL (0.2-1); BLOOD UREA NITROGEN 14.4 mg/dL (7-18); CALCIUM 8.5 mg/dL (8.5-10.1); CREATININE 0.7 mg/dL (0.55-1.3); TOT PROT 6.5 g/dl (6.4-8.2)
[2020-07-20] MEDS: THIAMINE HCL 100 MG TABLET (FP) PO SCH (22:33)
[2020-07-20] MEDS: SUVOREXANT 10 MG TABLET PO PRN (22:34)
[2020-07-20] MEDS: MELATONIN 5 MG TABLETS PO SCH (23:00)
[2020-07-21] MEDS: chlordiazePOXIDE HCL 25 MG CAPSULE PO SCH ×3 (05:43→17:15)
[2020-07-21] MEDS: INSULIN SLIDING SCALE (NOVOLOG) 1 VIAL SQ SCH ×4 (07:49→21:51)
[2020-07-21] MEDS ORDERED: METHADONE HCL 10 MG TABLET (FOR DETOX USE ONLY) PO ONE (10:00)
[2020-07-21] MEDS: NICOTINE 21 MG/24 HOURS TOPICAL PATCH TD SCH (10:20)
[2020-07-21] MEDS: PRENATAL VITAMINS W/ FOLIC ACID TABLET (FP) PO SCH (10:22)
--- NOTE | 2020-07-21 10:41 | PN ---
[facility] CIWA - CIWA Score Nausea/Vomitin-No Nausea/No Vomiting Muscle Tremors: 3 Anxiety: 2 Agitation: 2 Paroxysmal Sweats: 2 Orientation: 0-Oriented Tacttile Disturbances: 0-None Auditory Disturbances: 0-None Visual Disturbances: 0-None Headache: 0-None Present CIWA-Ar Total Score: 9 BHS COWS - Scale Resting Pulse: 2= [place] 101-120 Sweatin= Chills/Flushing Restless Observation: 1= Difficult to Sit Still Pupil Size: 0= Normal to Room Light Bone or Joint Aches: 1= Mild Discomfort Runny Nose/ Eye Tearin= None GI Upset > 30mins: 1= Stomach Cramp Tremor Observation of Outstretched Hands: 1= Tremor [place], Not Seen Yawning Observation: 1= 1-2x During Session Anxiety or Irritability: 1=Feels Anxious/Irritable Goose Flesh Skin: 0=Smooth Skin COWS Score: 9 S Progress Note (SOAP) Subjective: sweats shakes interrupted sleep agitation Objective: 07/21/20 10:41 Vital Signs Temperature 96.9 F L 07/21/20 05:38 Pulse Rate 68 07/21/20 05:38 Respiratory Rate 20 07/21/20 05:38 Blood Pressure 147/79 07/21/20 05:38 O2 Sat by Pulse Oximetry (%) 98 07/21/20 05:38 Laboratory Tests 07/19/20 07/19/20 07/19/20 15:30 16:29 21:16 WBC RBC Hgb Hct MCV MCH MCHC RDW Plt Count MPV Sodium Potassium Chloride Carbon Dioxide Anion Gap BUN Creatinine Est GFR (CKD-EPI)AfAm Est GFR (CKD-EPI)NonAf POC Glucometer 262 336 Random Glucose Calcium Total Bilirubin AST ALT Alkaline Phosphatase Total Protein Albumin Syphilis Serology COVID-19 (ANGEL) Not detected HIV Ag/Ab Combo Qual 07/20/20 07/20/20 07/20/20 06:20 08:30 08:30 WBC RBC Hgb Hct MCV MCH MCHC RDW Plt Count MPV Sodium Potassium Chloride Carbon Dioxide Anion Gap BUN Creatinine Est GFR (CKD-EPI)AfAm Est GFR (CKD-EPI)NonAf POC Glucometer 295 Random Glucose Calcium Total Bilirubin AST ALT Alkaline Phosphatase Total Protein Albumin Syphilis Serology Non-reactive COVID-19 (ANGEL) HIV Ag/Ab Combo Qual Negative 07/20/20 07/20/20 07/20/20 08:30 08:30 11:36 WBC 4.1 RBC 4.02 Hgb 12.2 Hct 35.7 MCV 88.9 MCH 30.5 MCHC 34.3 RDW 15.3 D Plt Count 62 L MPV 8.7 Sodium 136 Potassium 4.0 Chloride 102 Carbon Dioxide 28 Anion Gap 6 L BUN 14.4 Creatinine 0.7 Est GFR (CKD-EPI)AfAm 124.00 Est GFR (CKD-EPI)NonAf 106.99 POC Glucometer 175 Random Glucose 255 H Calcium 8.5 Total Bilirubin 0.2 AST 20 ALT 35 Alkaline Phosphatase 57 Total Protein 6.5 Albumin 3.1 L Syphilis Serology COVID-19 (ANGEL) HIV Ag/Ab Combo Qual 07/20/20 07/20/20 07/21/20 16:21 21:04 05:45 WBC RBC Hgb Hct MCV MCH MCHC RDW Plt Count MPV Sodium Potassium Chloride Carbon Dioxide Anion Gap BUN Creatinine Est GFR (CKD-EPI)AfAm Est GFR (CKD-EPI)NonAf POC Glucometer 183 236 195 Random Glucose Calcium Total Bilirubin AST ALT Alkaline Phosphatase Total Protein Albumin Syphilis Serology COVID-19 (ANGEL) HIV Ag/Ab Combo Qual labs noted aao x 3 ambulating no acute distress Assessment: 07/21/20 10:44 withdrawal sx Plan: continue detox increase fluids
[2020-07-21] MEDS: SUVOREXANT 10 MG TABLET PO PRN (21:47)
[2020-07-21] MEDS: THIAMINE HCL 100 MG TABLET (FP) PO SCH (23:42)
[2020-07-21] MEDS: MELATONIN 5 MG TABLETS PO SCH (23:42)
[2020-07-22] MEDS ORDERED: chlordiazePOXIDE HCL 10 MG CAPSULE PO PRN
[2020-07-22] MEDS: chlordiazePOXIDE HCL 25 MG CAPSULE PO SCH (00:14)
[2020-07-22] MEDS: chlordiazePOXIDE HCL 10 MG CAPSULE PO SCH ×4 (06:19→22:01)
[2020-07-22] MEDS: INSULIN SLIDING SCALE (NOVOLOG) 1 VIAL SQ SCH ×4 (08:07→22:07)
[2020-07-22] MEDS ORDERED: METHADONE HCL 5 MG TABLET (FOR DETOX USE ONLY) ONE (08:52)
[2020-07-22] MEDS ORDERED: METHADONE HCL 10 MG TABLET (FOR DETOX USE ONLY) ONE (08:53)
[2020-07-22] MEDS ORDERED: METHADONE (DETOX) 10 MG, METHADONE (DETOX) 5 MG PO ONE (10:00)
[2020-07-22] MEDS: PRENATAL VITAMINS W/ FOLIC ACID TABLET (FP) PO SCH (10:17)
[2020-07-22] MEDS: NICOTINE 21 MG/24 HOURS TOPICAL PATCH TD SCH (10:17)
--- NOTE | 2020-07-22 11:15 | PN ---
S CIWA - CIWA Score Nausea/Vomitin-Mild Nausea/No Vomiting Muscle Tremors: 2 Anxiety: 1-Mildly Anxious Agitation: 1-Slight > Activity Paroxysmal Sweats: 1-Minimal Palms Moist Orientation: 0-Oriented Tacttile Disturbances: 0-None Auditory Disturbances: 0-None Visual Disturbances: 0-None Headache: 1-Very Mild CIWA-Ar Total Score: 7 S COWS - Scale Resting Pulse: 1= [place] 81-100 Sweatin= Chills/Flushing Restless Observation: 1= Difficult to Sit Still Pupil Size: 0= Normal to Room Light Bone or Joint Aches: 1= Mild Discomfort Runny Nose/ Eye Tearin= Nasal Congestion GI Upset > 30mins: 0= None Tremor Observation of Outstretched Hands: 0= None Yawning Observation: 0= None Anxiety or Irritability: 1=Feels Anxious/Irritable Goose Flesh Skin: 0=Smooth Skin COWS Score: 6 S Progress Note (SOAP) Subjective: pt admitted for detox from alcohol and opioids, no complaints today. O: Vital Signs - 24 hr 07/21/20 07/21/20 07/21/20 13:20 16:42 16:45 Temperature 98.1 F 97.7 F Pulse Rate 76 85 86 Respiratory 16 19 18 Rate Blood Pressure 138/66 127/90 155/81 O2 Sat by Pulse 99 Oximetry (%) 07/21/20 07/22/20 07/22/20 20:30 06:20 08:24 Temperature 97.7 F 97.5 F L 98.7 F Pulse Rate 81 56 L 75 Respiratory 18 18 16 Rate Blood Pressure 155/74 143/87 137/61 O2 Sat by Pulse 98 98 Oximetry (%) Laboratory Tests 07/19/20 07/19/20 07/19/20 15:30 16:29 21:16 WBC RBC Hgb Hct MCV MCH MCHC RDW Plt Count MPV Sodium Potassium Chloride Carbon Dioxide Anion Gap BUN Creatinine Est GFR (CKD-EPI)AfAm Est GFR (CKD-EPI)NonAf POC Glucometer 262 336 Random Glucose Calcium Total Bilirubin AST ALT Alkaline Phosphatase Total Protein Albumin Syphilis Serology COVID-19 (ANGEL) Not detected HIV Ag/Ab Combo Qual 07/20/20 07/20/20 07/20/20 06:20 08:30 08:30 WBC RBC Hgb Hct MCV MCH MCHC RDW Plt Count MPV Sodium Potassium Chloride Carbon Dioxide Anion Gap BUN Creatinine Est GFR (CKD-EPI)AfAm Est GFR (CKD-EPI)NonAf POC Glucometer 295 Random Glucose Calcium Total Bilirubin AST ALT Alkaline Phosphatase Total Protein Albumin Syphilis Serology Non-reactive COVID-19 (ANGEL) HIV Ag/Ab Combo Qual Negative 07/20/20 07/20/20 07/20/20 08:30 08:30 11:36 WBC 4.1 RBC 4.02 Hgb 12.2 Hct 35.7 MCV 88.9 MCH 30.5 MCHC 34.3 RDW 15.3 D Plt Count 62 L MPV 8.7 Sodium 136 Potassium 4.0 Chloride 102 Carbon Dioxide 28 Anion Gap 6 L BUN 14.4 Creatinine 0.7 Est GFR (CKD-EPI)AfAm 124.00 Est GFR (CKD-EPI)NonAf 106.99 POC Glucometer 175 Random Glucose 255 H Calcium 8.5 Total Bilirubin 0.2 AST 20 ALT 35 Alkaline Phosphatase 57 Total Protein 6.5 Albumin 3.1 L Syphilis Serology COVID-19 (ANGEL) HIV Ag/Ab Combo Qual 07/20/20 07/20/20 07/21/20 16:21 21:04 05:45 WBC RBC Hgb Hct MCV MCH MCHC RDW Plt Count MPV Sodium Potassium Chloride Carbon Dioxide Anion Gap BUN Creatinine Est GFR (CKD-EPI)AfAm Est GFR (CKD-EPI)NonAf POC Glucometer 183 236 195 Random Glucose Calcium Total Bilirubin AST ALT Alkaline Phosphatase Total Protein Albumin Syphilis Serology COVID-19 (ANGEL) HIV Ag/Ab Combo Qual 07/21/20 07/21/20 07/21/20 12:20 16:47 21:42 WBC RBC Hgb Hct MCV MCH MCHC RDW Plt Count MPV Sodium Potassium Chloride Carbon Dioxide Anion Gap BUN Creatinine Est GFR (CKD-EPI)AfAm Est GFR (CKD-EPI)NonAf POC Glucometer 238 249 279 Random Glucose Calcium Total Bilirubin AST ALT Alkaline Phosphatase Total Protein Albumin Syphilis Serology COVID-19 (ANGEL) HIV Ag/Ab Combo Qual 07/22/20 06:21 WBC RBC Hgb Hct MCV MCH MCHC RDW Plt Count MPV Sodium Potassium Chloride Carbon Dioxide Anion Gap BUN Creatinine Est GFR (CKD-EPI)AfAm Est GFR (CKD-EPI)NonAf POC Glucometer 177 Random Glucose Calcium Total Bilirubin AST ALT Alkaline Phosphatase Total Protein Albumin Syphilis Serology COVID-19 (ANGEL) HIV Ag/Ab Combo Qual increased random sugar labs o/w WNL a/p: AUD/OUD- continue dual detox protocols Hyperglycemia- SS coverage as needed, needs f/u with PCP at discharge
[2020-07-22] MEDS ORDERED: cloNIDine HCL 0.1 MG TABLET PO PRN (11:38)
[2020-07-22] MEDS: SUVOREXANT 10 MG TABLET PO PRN (22:01)
[2020-07-22] MEDS: THIAMINE HCL 100 MG TABLET (FP) PO SCH (22:01)
[2020-07-22] MEDS ORDERED: INSULIN SLIDING SCALE (NOVOLOG) 1 VIAL SQ ONE (22:06)
[2020-07-22] MEDS: MELATONIN 5 MG TABLETS PO SCH (22:07)
[2020-07-23] MEDS: chlordiazePOXIDE HCL 10 MG CAPSULE PO SCH ×2 (05:25→16:44)
[2020-07-23] MEDS: INSULIN SLIDING SCALE (NOVOLOG) 1 VIAL SQ SCH ×4 (07:54→21:55)
[2020-07-23] MEDS: NICOTINE 21 MG/24 HOURS TOPICAL PATCH TD SCH (09:55)
[2020-07-23] MEDS: PRENATAL VITAMINS W/ FOLIC ACID TABLET (FP) PO SCH (09:57)
[2020-07-23] MEDS ORDERED: METHADONE HCL 10 MG TABLET (FOR DETOX USE ONLY) PO ONE (10:00)
--- NOTE | 2020-07-23 12:08 | PN ---
[facility] CIWA - CIWA Score Nausea/Vomitin-No Nausea/No Vomiting Muscle Tremors: 1-None Visible, but [place] Anxiety: 2 Agitation: 2 Paroxysmal Sweats: 1-Minimal Palms Moist Orientation: 0-Oriented Tacttile Disturbances: 0-None Auditory Disturbances: 1-Very Mild Visual Disturbances: 0-None Headache: 0-None Present CIWA-Ar Total Score: 7 S COWS - Scale Resting Pulse: 1= [place] 81-100 Sweatin= No chills or Flushing Restless Observation: 0= Sits Still Pupil Size: 0= Normal to Room Light Bone or Joint Aches: 1= Mild Discomfort Runny Nose/ Eye Tearin= None GI Upset > 30mins: 0= None Tremor Observation of Outstretched Hands: 0= None Yawning Observation: 0= None Anxiety or Irritability: 1=Feels Anxious/Irritable Goose Flesh Skin: 0=Smooth Skin COWS Score: 3 S Progress Note (SOAP) Subjective: Complaints of mild anxiety, and sweats. Objective: 07/23/20 12:07 Vital Signs 07/23/20 07/23/20 05:12 08:44 Temperature 97.3 F L 98.0 F Pulse Rate 69 84 Respiratory 16 17 Rate Blood Pressure 151/75 122/65 O2 Sat by Pulse 98 Oximetry (%) Laboratory Last Values WBC 4.1 K/mm3 (4.0-10.0) 07/20/20 08:30 RBC 4.02 M/mm3 (4.00-5.60) 07/20/20 08:30 Hgb 12.2 GM/dL (11.7-16.9) 07/20/20 08:30 Hct 35.7 % (35.4-49) 07/20/20 08:30 MCV 88.9 fl (80-96) 07/20/20 08:30 MCH 30.5 pg (25.7-33.7) 07/20/20 08:30 MCHC 34.3 g/dl (32.0-35.9) 07/20/20 08:30 RDW 15.3 % (11.9-15.9) D 07/20/20 08:30 Plt Count 62 K/MM3 (134-434) L 07/20/20 08:30 MPV 8.7 fl (7.5-11.1) 07/20/20 08:30 Sodium 136 mmol/L (136-145) 07/20/20 08:30 Potassium 4.0 mmol/L (3.5-5.1) 07/20/20 08:30 Chloride 102 mmol/L (98-107) 07/20/20 08:30 Carbon Dioxide 28 mmol/L (21-32) 07/20/20 08:30 Anion Gap 6 MMOL/L (8-16) L 07/20/20 08:30 BUN 14.4 mg/dL (7-18) 07/20/20 08:30 Creatinine 0.7 mg/dL (0.55-1.3) 07/20/20 08:30 Est GFR (CKD-EPI)AfAm 124.00 07/20/20 08:30 Est GFR (CKD-EPI)NonAf 106.99 07/20/20 08:30 POC Glucometer 159 UNITS (80-120) 07/23/20 05:25 Random Glucose 255 mg/dL (74-106) H 07/20/20 08:30 Calcium 8.5 mg/dL (8.5-10.1) 07/20/20 08:30 Total Bilirubin 0.2 mg/dL (0.2-1) 07/20/20 08:30 AST 20 U/L (15-37) 07/20/20 08:30 ALT 35 U/L (13-61) 07/20/20 08:30 Alkaline Phosphatase 57 U/L (45-117) 07/20/20 08:30 Total Protein 6.5 g/dl (6.4-8.2) 07/20/20 08:30 Albumin 3.1 g/dl (3.4-5.0) L 07/20/20 08:30 Syphilis Serology Non-reactive (NONREACTIVE) 07/20/20 08:30 COVID-19 (ANGEL) Not detected (Not Detected) 07/19/20 15:30 HIV Ag/Ab Combo Qual Negative (NEGATIVE) 07/20/20 08:30 Labs noted. Assessment: 07/23/20 12:07 Alert and oriented x 3, in no acute respiratory distress. Full ROM, ambulating in the unit without assistance. Mild withdrawal symptoms. For discharge in AM Plan: Continue detox protocol. Discharge in AM.
[2020-07-23] MEDS ORDERED: INSULIN SLIDING SCALE (NOVOLOG) 1 VIAL SQ ONE (16:42)
[2020-07-23] MEDS: hydrOXYzine PAMOATE 25 MG CAPSULE (FP) PO PRN (16:44)
[2020-07-23] MEDS: SUVOREXANT 10 MG TABLET PO PRN (21:53)
[2020-07-23] MEDS: THIAMINE HCL 100 MG TABLET (FP) PO SCH (21:54)
[2020-07-23] MEDS: MELATONIN 5 MG TABLETS PO SCH (21:55)
[2020-07-24] MEDS ORDERED: chlordiazePOXIDE HCL 10 MG CAPSULE PO ONE (05:00)
[2020-07-24] MEDS ORDERED: METHADONE HCL 5 MG TABLET (FOR DETOX USE ONLY) PO ONE (06:00)
[2020-07-24] MEDS: INSULIN SLIDING SCALE (NOVOLOG) 1 VIAL SQ SCH ×3 (08:12→16:32)
[2020-07-24] MEDS: NICOTINE 21 MG/24 HOURS TOPICAL PATCH TD SCH (10:22)
[2020-07-24] MEDS: PRENATAL VITAMINS W/ FOLIC ACID TABLET (FP) PO SCH (10:22)
--- NOTE | 2020-07-24 10:50 | DS ---
[facility] Detox Discharge Summary Admission Date: 07/19/20 Discharge Date: 07/24/20 - History Present History: Alcohol Dependence, Opioid Dependence, Sedative Dependence Additional Comments: Patient was seen and examined at bedside. Alert and oriented x 3, in no acute respiratory distress. Skin warm to touch. Full ROM, ambulatory without assistance. Detox protocol completed, stable for discharge today. Pertinent Past History: History of COPD, HTN dyslipidemia, alcohol, Benzo, heroin, and nicotine use disorder. - Physical Exam Results Vital Signs: Vital Signs Temperature 98.2 F 07/24/20 09:13 Pulse Rate 85 07/24/20 09:13 Respiratory Rate 16 07/24/20 09:13 Blood Pressure 154/72 07/24/20 09:13 O2 Sat by Pulse Oximetry (%) 98 07/24/20 05:25 Vital Signs 07/24/20 07/24/20 05:25 09:13 Temperature 97.7 F 98.2 F Pulse Rate 67 85 Respiratory 20 16 Rate Blood Pressure 145/75 154/72 O2 Sat by Pulse 98 Oximetry (%) Laboratory Last Values WBC 4.1 K/mm3 (4.0-10.0) 07/20/20 08:30 RBC 4.02 M/mm3 (4.00-5.60) 07/20/20 08:30 Hgb 12.2 GM/dL (11.7-16.9) 07/20/20 08:30 Hct 35.7 % (35.4-49) 07/20/20 08:30 MCV 88.9 fl (80-96) 07/20/20 08:30 MCH 30.5 pg (25.7-33.7) 07/20/20 08:30 MCHC 34.3 g/dl (32.0-35.9) 07/20/20 08:30 RDW 15.3 % (11.9-15.9) D 07/20/20 08:30 Plt Count 62 K/MM3 (134-434) L 07/20/20 08:30 MPV 8.7 fl (7.5-11.1) 07/20/20 08:30 Sodium 136 mmol/L (136-145) 07/20/20 08:30 Potassium 4.0 mmol/L (3.5-5.1) 07/20/20 08:30 Chloride 102 mmol/L (98-107) 07/20/20 08:30 Carbon Dioxide 28 mmol/L (21-32) 07/20/20 08:30 Anion Gap 6 MMOL/L (8-16) L 07/20/20 08:30 BUN 14.4 mg/dL (7-18) 07/20/20 08:30 Creatinine 0.7 mg/dL (0.55-1.3) 07/20/20 08:30 Est GFR (CKD-EPI)AfAm 124.00 07/20/20 08:30 Est GFR (CKD-EPI)NonAf 106.99 07/20/20 08:30 POC Glucometer 159 UNITS (80-120) 07/24/20 06:13 Random Glucose 255 mg/dL (74-106) H 07/20/20 08:30 Calcium 8.5 mg/dL (8.5-10.1) 07/20/20 08:30 Total Bilirubin 0.2 mg/dL (0.2-1) 07/20/20 08:30 AST 20 U/L (15-37) 07/20/20 08:30 ALT 35 U/L (13-61) 07/20/20 08:30 Alkaline Phosphatase 57 U/L (45-117) 07/20/20 08:30 Total Protein 6.5 g/dl (6.4-8.2) 07/20/20 08:30 Albumin 3.1 g/dl (3.4-5.0) L 07/20/20 08:30 Syphilis Serology Non-reactive (NONREACTIVE) 07/20/20 08:30 COVID-19 (ANGEL) Not detected (Not Detected) 07/19/20 15:30 HIV Ag/Ab Combo Qual Negative (NEGATIVE) 07/20/20 08:30 Labs noted. Pertinent Admission Physical Exam Findings: Withdrawal symptoms. - Treatment Hospital Course: Detox Protocol Followed, Detoxed Safely, Responded well, Discharged Condition Good - Medication Discharge Medications: Ambulatory Orders NK [No Known Home Medication] 06/06/20 - Diagnosis (1) Alcohol withdrawal Current Visit: Yes Status: Acute Qualifiers: Complication of substance-induced condition: uncomplicated Qualified Code(s): F10.230 - Alcohol dependence with withdrawal, uncomplicated (2) Opioid dependence with withdrawal Current Visit: Yes Status: Acute (3) COPD (chronic obstructive pulmonary disease) Current Visit: Yes Status: Chronic Qualifiers: COPD type: unspecified COPD Qualified Code(s): J44.9 - Chronic obstructive pulmonary disease, unspecified (4) Nicotine dependence Current Visit: Yes Status: Chronic (5) HLD (hyperlipidemia) Current Visit: No Status: Chronic - AMA Did Patient Leave Against Medical Advice: No
[2020-07-24 14:23] VITALS: BP 131/78; PULSE 108; TEMP 97.7
[2020-07-24] MEDS: hydrOXYzine PAMOATE 25 MG CAPSULE (FP) PO PRN (17:17)
== END 2020-07-24 05:32 | disposition other institution (70) | DRG 773 ==
LOC: YASAS 13:20 → Y6N 15:25
PROVIDERS: ADMIT Allergy & Immunology; ATTEND Allergy & Immunology
PROC: HZ2ZZZZ Detoxification Services for Substance Abuse Treatment (ICD-10-PCS; principal; 2020-07-19)
DX: F10.230 Alcohol dependence with withdrawal, uncomplicated (principal); F11.23 Opioid dependence with withdrawal; F13.20 Sedative, hypnotic or anxiolytic dependence, uncomplicated; F17.210 Nicotine dependence, cigarettes, uncomplicated; F19.282 Other psychoactive substance dependence with psychoactive substance-induced sleep disorder; F19.24 Other psychoactive substance dependence with psychoactive substance-induced mood disorder; F41.9 Anxiety disorder, unspecified; I10 Essential (primary) hypertension; J44.9 Chronic obstructive pulmonary disease, unspecified; E78.5 Hyperlipidemia, unspecified; E11.9 Type 2 diabetes mellitus without complications; K21.9 Gastro-esophageal reflux disease without esophagitis; Z62.810 Personal history of physical and sexual abuse in childhood; Z56.0 Unemployment, unspecified; Z59.0 Homelessness; Z79.4 Long term (current) use of insulin
CPT/HCPCS: 36415; 80053; 82962; 85027; 86780; 87389; 93005; 93010; J0735; U0003

== ENCOUNTER 2020-07-24 17:28 | Inpatient (IN) | payer OTHER ==
[2020-07-24] MEDS ORDERED: IBUPROFEN 400 MG TABLET (FP) PO PRN (17:48)
[2020-07-24] MEDS ORDERED: MAGNESIUM CITRATE 300 ML BOTTLE PO PRN (17:48)
[2020-07-24] MEDS ORDERED: guaiFENesin 200 MG/10 ML 10 ML UNIT-DOSE CUPS PO PRN (17:48)
[2020-07-24] MEDS ORDERED: P-EPHED 60MG/TRIPROLIDI 2.5MG TABLET PO PRN (17:48)
[2020-07-24] MEDS ORDERED: ACETAMINOPHEN 325 MG TABLET (FP) PO PRN (17:48)
[2020-07-24] MEDS ORDERED: LOPERAMIDE HCL 2 MG CAPSULE PO PRN (17:48)
[2020-07-24] MEDS ORDERED: MAG HYDROX/AL HYDROX/SIMETH 30 ML UNIT-DOSE CUP PO PRN (17:48)
[2020-07-24] MEDS ORDERED: MENTHOL/PHENOL 1 EACH UD MM PRN (17:48)
[2020-07-24] MEDS ORDERED: MAGNESIUM HYDROX 2400MG/30ML ORAL SUSPENSION 30 ML CUP PO PRN (17:48)
[2020-07-24] MEDS ORDERED: NICOTINE POLACRILEX 2 MG GUM BUC PRN (17:48)
[2020-07-24 18:10] VITALS: BMI 25.1
[2020-07-24] MEDS: hydrOXYzine PAMOATE 25 MG CAPSULE (FP) PO SCH ×2 (22:09→22:10)
[2020-07-24] MEDS: THIAMINE HCL 100 MG TABLET (FP) PO SCH (22:09)
[2020-07-24] MEDS: SUVOREXANT 10 MG TABLET PO PRN (22:09)
[2020-07-24] MEDS: MELATONIN 5 MG TABLETS PO SCH (22:09)
[2020-07-25] MEDS: hydrOXYzine PAMOATE 25 MG CAPSULE (FP) PO SCH ×2 (06:34→10:31)
--- NOTE | 2020-07-25 09:42 | HP ---
[facility] Rehab Assess/Revision - Admission History Admitted to Rehab from: Date of Admission to Rehab: 07/24/20 - Vital signs Vital Signs: Vital Signs Period Temp Pulse Resp BP Sys/Santos Pulse Ox Last 24 Hr 97.6 F-98.4 F 85-112 18-18 144-156/76-78 95-98 - Findings Detox History & Physical reviewed: Yes Concur with findings: Yes Comments/Additional Findings: Pt is a 54 y/o male admitted to rehab aftercompleting detox on on yesterday for heroin and alcohol use disorder. Pt noncompliant with meds for comorbid medical conditions. Not on home meds currently. PMH: hypertension, hyperlipidmia, COPD, DM. PSH: Appendectomy. Psych: Anxiety -- not on meds. Social: Homeless. Legal: None Inpatient Rehab Admission - Rehab Decision to Admit Inpatient rehab admission?: Yes - Initial Determination Are CD services needed?: Yes Free of communicable disease: Yes Not in need of hospitalization: Yes - Rehab Admission Criteria Previous failed treatment: Yes Poor recovery environment: Yes Comorbidities: Yes Lacks judgement: Yes Patient is meeting Inpatient Rehab admission criteria:: Yes
[2020-07-25] MEDS ORDERED: NICOTINE 7 MG/24 HOURS TOPICAL PATCH TD SCH ×2 (10:00→15:06)
[2020-07-25] MEDS: hydrOXYzine PAMOATE 25 MG CAPSULE (FP) PO PRN ×2 (10:30→14:56)
[2020-07-25] MEDS: PRENATAL VITAMINS W/ FOLIC ACID TABLET (FP) PO SCH (10:30)
--- NOTE | 2020-07-25 12:54 | PN ---
[facility] Progress Note Note: Pt stated to writer technical publications "can I see the psych today"?. Pt reports wants to see psych for insomnia and "discuss other things". Pt reluctant to talk to this writer technical publications any further questions regarding psych Hx. However, pt later said I want to see the psych, I'm depressed, I'm depressed". Pt denies s/h/i. Admitted to rehab from [address] [place] [address] yesterday. Pt reports he has primary care with Dr. Vesta Barros at [facility]. This writer technical publications called pt's pharmacy at [facility] on [address], [place], to verify his medications. Pt has been very noncompliant with his meds. Pharmacists stated that pt last picked up meds in March 2020. Also reports pt has current Rx posted 07/19/20 yet to be picked up by patient. Current Medications as verified with [facility] pharmacist posted 07/19/20: Vitamin B1 100 mg po daily Folic Acid 1 mg po daily Atorvastatin 40 mg po nightly Trulicity 1.5/0.5 mg inj weekly MVI 1 tab po daily Aspirin 81 mg po daily Amlodipine 10 mg po daily Albuterol inhaler 2 puffs Q4h prn Vital Signs - 24 hr 07/24/20 07/25/20 17:40 06:28 Temperature 98.4 F 97.6 F Pulse Rate 112 H 85 Respiratory 18 18 Rate Blood Pressure 156/78 144/76 O2 Sat by Pulse 98 95 Oximetry (%) Alert o x 3 nad Pt seen in bed and appeared calm in the beginning but agitated on asking pt's health questions. S/P detox for Heroin/alcohol Psych consult today Reorder pt's home medications Hold Trulicity(hospital nonformulary medication) Continue Insulin sliding scale as was in detox Contact pt's primary care provider if possible before discharge from rehab.
[2020-07-25] MEDS ORDERED: ALBUTEROL SO4 HFA INHALER IH SCH (13:45)
[2020-07-25] MEDS: ASPIRIN COATED 81 MG TABLET.EC PO SCH (14:28)
[2020-07-25] MEDS: amLODIPine BESYLATE 10 MG TABLET (FP) PO SCH (14:28)
[2020-07-25] MEDS ORDERED: NICOTINE POLACRILEX 2 MG GUM BUC PRN (15:06)
[2020-07-25] MEDS ORDERED: hydrOXYzine PAMOATE 25 MG CAPSULE (FP) PO PRN (15:07)
[2020-07-25] MEDS ORDERED: ALBUTEROL SO4 HFA INHALER IH PRN (15:58)
[2020-07-25] MEDS ORDERED: INSULIN SLIDING SCALE (NOVOLOG) 1 VIAL SQ SCH ×2 (16:30)
[2020-07-25] MEDS: INSULIN SLIDING SCALE (NOVOLOG) 1 VIAL SQ SCH ×2 (16:47→21:04)
--- NOTE | 2020-07-25 17:28 | CONSULT ---
[facility] Psychiatric Consult - Data Date of interview: 07/25/20 Admission source: Transfer from [address] [place] [address]. Identifying data: Detoxification completed at [address] [place] [address] and first admission to [address] for this 54 y/o male who sought rehabilitation treatment to further consolidate sobriety and manage his co-morbid morbid mood disorder (treated in the past with SSRI agents). Patient is single, no dependents, homeless, unemployed and deprived of any form of financial assistance. Substance Abuse History: Discussed with the patient in this interview. LALO profile as follows : Alcohol. Substance amount: 1 liter vodka. Frequency of use: Daily. Substance route: Oral. Date of Last Use: 07/18/20. Heroin. Substance amount: 12-14 bags. Frequency of use: Daily. Substance route: Inhalation (ex: sniffing or snorting), Injection (ex: intravenous or skin popping). Date of Last Use: 07/18/20. Benzo. Substance amount: 1-2 mg. Frequency of use: one time within the past week. Substance route: oral. Date of Last Use: 07/18/20. Nicotine. Substance amount: 1 pack. Frequency of use: Daily. Substance route: Smoking. Date of Last Use: 07/19/20. Smoking history: Current every day smoker. Have you smoked in the past 12 months: Yes. Aproximately how many cigarettes per day: 20. Cigars Per Day: 0. Hx Chewing Tobacco Use: No. Initiated information on smoking cessation: Yes. 'Breaking Loose' booklet given: 07/19/20. - Substances abused. Alcohol. Substance route: Oral. Frequency: Daily. Amount used: 1 pint vodka. Age of first use: 15. Date of last use: 07/18/20. Heroin. Substance route: Injection. Frequency: Daily. Amount used: 12-14 bags. Age of first use: 19. Date of last use: 07/18/20 Medical History: Medical profile is remarkable for diabetes mellitus, GERD, hype rtension, dyslipidemia, COPD and history of appendectomy. Psychiatric History: Patient is noted as a marginally cooperative, irritable and guarded historian. He denies history of psychiatric hospitalizations, OPD care or suicide attempts. Mr Floyd reports past treatment with fluoxetine and sertraline. Declines to elaborate. Except to say that his adherence to these m edications was brief (merely two months) because of his perception that " they were not working." Patient added that he " did not particularly like prozac " due to side effects (not disclosed). Physical/Sexual Abuse/Trauma History: Not discussed. Patient declines. Additional Comment: Urine drug screen results: FEN-Fentanyl, MOP-Opiates, MTD-Methadone, BZO-Benzodiazepines. Noted. Mental Status Exam - Mental Status Exam Alert and Oriented to: Time, Place, Person Cognitive Function: Good Patient Appearance: Disheveled Mood: Withdrawn, Anxious, Irritable Affect: Mood Congruent, Constricted Patient Behavior: Cooperative (superficially cooperative) Speech Pattern: Clear Voice Loudness: Normal Thought Process: Intact, Goal Oriented Thought Disorder: Not Present Hallucinations: Denies Suicidal Ideation: Denies Homicidal Ideation: Denies Insight/Judgement: Poor Sleep: Poorly, Difficulty falling asleep Appetite: Fair Gait/Station: Other (not observed out of bed) Psychiatric Findings - Problem List ([place] 1, 2,3) (1) Alcohol use disorder Current Visit: Yes Status: Chronic (2) Opioid use disorder Current Visit: Yes Status: Chronic (3) Nicotine dependence Current Visit: Yes Status: Chronic (4) Substance induced mood disorder Current Visit: Yes Status: Chronic (5) History of depression Current Visit: Yes Status: Chronic (6) Insomnia Current Visit: Yes Status: Chronic (7) Non-compliance Current Visit: Yes Status: Chronic Comment: With psychiatric OPD care. - Initial Treatment Plan Initial Treatment Plan: Records ([facility]) reviewed. Psychoeducation. Motivational counseling. Support. Sleep hygiene. Group and individual therapy. Patient has requested to resume zoloft. Side effects/benefits are explained to the patient. Zoloft is initiated at the dose of 50 po daily with patient's consent (verbal). Observation.
[2020-07-25] MEDS: MELATONIN 5 MG TABLETS PO SCH (21:03)
[2020-07-25] MEDS: THIAMINE HCL 100 MG TABLET (FP) PO SCH (21:03)
[2020-07-25] MEDS: SUVOREXANT 10 MG TABLET PO PRN (21:03)
[2020-07-25] MEDS ORDERED: ATORVASTATIN CA 40 MG TABLET (FP) PO SCH (22:00)
[2020-07-26] MEDS: INSULIN SLIDING SCALE (NOVOLOG) 1 VIAL SQ SCH ×2 (06:31→11:14)
[2020-07-26 07:13] VITALS: BP 134/79; PULSE 87; TEMP 97.3
[2020-07-26] MEDS: PRENATAL VITAMINS W/ FOLIC ACID TABLET (FP) PO SCH (09:26)
[2020-07-26] MEDS: amLODIPine BESYLATE 10 MG TABLET (FP) PO SCH (09:26)
[2020-07-26] MEDS: ASPIRIN COATED 81 MG TABLET.EC PO SCH (09:30)
[2020-07-26] MEDS ORDERED: SERTRALINE HCL 50 MG TABLET (FP) PO SCH (10:00)
[2020-07-26] MEDS ORDERED: hydrOXYzine PAMOATE 50 MG CAPSULE (FP) PO PRN (11:36)
--- NOTE | 2020-07-26 12:55 | DS ---
[facility] Rehab Discharge Summary - [facility] Rehab Discharge Summary Admission Date: 07/24/20 Discharge Date: 07/26/20 - History Present History: Alcohol dependence, Opioid dependence, Sedative dependence Additional Comments: Pt declined to continue with rehab. Became very abrasive and agitated when asked the reason why he is discontinuing tx. States "I just want to leave now"(Quicky sprang up out of his bed). Pt was seen by his counselor, Ms Keren Barnes and referred for a CD aftercare follow up. Pt will follow up with his PCP Dr. Vesta Grove at [facility] for medical management of comorbid conditions. Pertinent Past History: HTN DM HLD Depression/Anxiety - Discharge Physical Exam Vital Signs: Vital Signs Temperature 97.3 F L 07/26/20 06:25 Pulse Rate 87 07/26/20 06:25 Respiratory Rate 18 07/26/20 06:25 Blood Pressure 134/79 07/26/20 06:25 O2 Sat by Pulse Oximetry (%) 98 07/26/20 06:25 Alert o x 3,denies s/h/i nad,no res difficulty oob ambulating with steady gait Active FROM all extremities. Pertinent Admission Physical Exam Findings: Laboratory Tests 07/25/20 07/25/20 07/26/20 16:46 20:43 06:31 POC Glucometer 180 250 161 07/26/20 11:13 POC Glucometer 173 - Treatment Discharge Condition: Discharge condition good Hospital Course: Pt is a 54 y/o male admitted to rehab from [address] on 07/24/20. Pt detoxed from heroin and alcohol. Apparently pt has stopped going to his primary care and suboxone program since 03/2020 and resorting on buying Methadone on the street. Pt has been referred back to his Suboxone program to his prescriber, Dr. Vesta Grove. Pt accepted CD referral to [facility] for follow up. - Medication Discharge Medications: Ambulatory Orders Albuterol Sulfate Inhaler - [Ventolin HFA Inhaler -] 2 puff IH Q4H PRN 07/25/20 Amlodipine Besylate [Norvasc -] 10 mg PO DAILY 07/25/20 Aspirin [Aspirin EC] 81 mg PO DAILY 07/25/20 Atorvastatin Calcium 40 mg PO HS 07/25/20 Dulaglutide [Trulicity] 1.5 mg SQ WEEKLY 07/25/20 Folic Acid 1 mg PO DAILY 07/25/20 Thiamine Mononitrate [Vitamin B-1] 100 mg PO DAILY 07/25/20 - Medication-Assisted Treatment (MAT) Medication-Assisted Treatment (MAT): Yes Medication Prescribed: Suboxone MAT Follow-up Referral: [place] [address] - Discharge Instructions Diet, activity, other medical instructions: Diet:ROSALIND/NCS Activity:oob ad debi Other medical instructions:Follow up with your primary care provider for medical management after discharge. - Diagnosis (1) Alcohol use disorder Status: Chronic (2) History of depression Status: Chronic (3) Nicotine dependence Status: Chronic Qualifiers: Nicotine product type: cigarettes Substance use status: uncomplicated Qualified Code(s): F17.210 - Nicotine dependence, cigarettes, uncomplicated (4) Non-compliance Status: Chronic (5) Opioid use disorder Status: Chronic (6) COPD (chronic obstructive pulmonary disease) Status: Chronic Qualifiers: COPD type: unspecified COPD Qualified Code(s): J44.9 - Chronic obstructive pulmonary disease, unspecified (7) Diabetes type 2, controlled Status: Chronic (8) GERD (gastroesophageal reflux disease) Status: Chronic Qualifiers: Esophagitis presence: esophagitis presence not specified Qualified Code(s): K21.9 - Gastro-esophageal reflux disease without esophagitis (9) HLD (hyperlipidemia) Status: Chronic (10) HTN (hypertension) Status: Chronic Qualifiers: Hypertension type: essential hypertension Qualified Code(s): I10 - Essential (primary) hypertension (11) Seasonal allergies Status: Chronic - Follow-up Referral Minutes to complete discharge: 20 - AMA Did Patient Leave Against Medical Advice: Yes Additional Comments: Pt has been informed to diamond picker his medications sent by his primary care to [facility] pharmacy on 07/19/20 per pharmacist that he needs to diamond picker. Pt verbalized understanding. Addendum:apparently pt was on Suboxone MAT and did not disclose this information on admission to detox or to rfp writer in rehab. Demanded to be started on suboxone immediately after coming from [address] on 03/24/20 and taking Methadone. Pt refused to wait for any clearance period and to be assessed for suboxone MAT. Pt is highly noncompliant with his medications for comorbid conditions as well as his CD treatment . The information below was obtained from [employer] after the fact. This report was requested by: Jessica Seo | Reference #: [id number] You have not added a YOVANI number. Keeping your YOVANI number(s) up to date on the My YOVANI Numbers page will enable the separation of your prescriptions from others in the search results. Others' Prescriptions Patient Name: Padilla FloydBirth Date: 1965 Address: [address] [place] [id number]: Male Rx Written Rx Dispensed Drug Quantity Days Supply Prescriber Name Payment Method Dispenser 03/31/2020 03/31/2020 buprenorphine-naloxone 8-2 mg sl film 90 30 Ziemba Perfecto, [facility] [employer] [employer] #[id number] 03/04/2020 03/04/2020 buprenorphine-naloxone 8-2 mg sl tablet 30 30 Philippe Duque) Insurance [facility] 02/04/2020 02/06/2020 buprenorphine-naloxone 8-2 mg sl film 63 21 Ziemba Perfecto, [facility] [employer] #[id number] 01/11/2020 01/17/2020 buprenorphine-naloxone 8-2 mg sl film 3 3 Orville Lester MD Insurance [employer] #[id number] 12/24/2019 12/24/2019 buprenorphine-naloxone 8-2 mg sl film 45 15 Ziemba Perfecto, [employer] [employer] #[id number] 12/10/2019 12/11/2019 buprenorphine-naloxone 8-2 mg sl film 45 15 Christopher Cobb [employer] #[id number] 10/26/2019 10/27/2019 buprenorphine-naloxone 8-2 mg sl film 90 30 Daya Soria MD Insurance [employer] #[id number] 09/11/2019 09/14/2019 buprenorphine-naloxone 8-2 mg sl film 90 30 Marzena Dyson [facility] [employer] #[id number] 08/14/2019 08/14/2019 buprenorphine-naloxone 8-2 mg sl film 90 30 Ziemba Perfecto, [employer] [employer] #[id number] * - Drugs marked with an asterisk are compound drugs. If the compound drug is made up of more than one controlled substance, then each controlled substance will be a separate row in the table.
[2020-07-27] MEDS ORDERED: NICOTINE 21 MG/24 HOURS TOPICAL PATCH TD SCH (11:45)
== END 2020-07-26 12:38 | disposition left against medical advice (07) | DRG 770 ==
LOC: YASAS 17:28 → Y5N 17:29
PROVIDERS: ADMIT Allergy & Immunology; ATTEND Allergy & Immunology
PROC: HZ42ZZZ Group Counseling for Substance Abuse Treatment, Cognitive-Behavioral (ICD-10-PCS; principal; 2020-07-24)
DX: F10.20 Alcohol dependence, uncomplicated (principal); F11.20 Opioid dependence, uncomplicated; F17.210 Nicotine dependence, cigarettes, uncomplicated; F19.24 Other psychoactive substance dependence with psychoactive substance-induced mood disorder; F41.9 Anxiety disorder, unspecified; F32.9 Major depressive disorder, single episode, unspecified; G47.00 Insomnia, unspecified; E11.9 Type 2 diabetes mellitus without complications; I10 Essential (primary) hypertension; J44.9 Chronic obstructive pulmonary disease, unspecified; J30.2 Other seasonal allergic rhinitis; K21.9 Gastro-esophageal reflux disease without esophagitis; E78.5 Hyperlipidemia, unspecified; Z91.19 Patient's noncompliance with other medical treatment and regimen; Z56.0 Unemployment, unspecified; Z59.0 Homelessness
CPT/HCPCS: 82962

== ENCOUNTER 2023-05-04 12:57 | Inpatient (IN) | payer OTHER ==
[2023-05-04 16:02] VITALS: BMI 29.5
[2023-05-04] MEDS ORDERED: NALOXONE HCL (KLOXXADO) 8 MG SPRAY NS PRN (21:46)
[2023-05-04] MEDS ORDERED: MAG HYDROX/AL HYDROX/SIMETH 30 ML UNIT-DOSE CUP PO PRN (21:46)
[2023-05-04] MEDS ORDERED: IBUPROFEN 600 MG TABLET (FP) PO PRN (21:46)
[2023-05-04] MEDS ORDERED: ONDANSETRON *ODT* 4 MG TABLET SL PRN (21:46)
[2023-05-04] MEDS ORDERED: ACETAMINOPHEN 325 MG TABLET (FP) PO PRN (21:46)
[2023-05-04] MEDS ORDERED: NICOTINE 10 MG CARTRIDGE (INHALER) IH PRN (21:46)
[2023-05-04] MEDS ORDERED: IBUPROFEN 400 MG TABLET (FP) PO PRN (21:46)
[2023-05-04] MEDS ORDERED: guaiFENesin 600 MG TABLET.ER (FP) PO PRN (21:46)
[2023-05-04] MEDS ORDERED: MAGNESIUM HYDROX 2400MG/30ML ORAL SUSPENSION 30 ML CUP PO PRN (21:46)
[2023-05-04] MEDS ORDERED: BENZONATATE 200 MG CAPSULE PO PRN (21:46)
[2023-05-04] MEDS ORDERED: POLYETHYLENE GLYCOL (HEALTHYLAX) 3350 17 GM PACKET PO PRN (21:46)
[2023-05-04] MEDS ORDERED: DICYCLOMINE HCL 10 MG CAPSULE PO PRN (21:46)
[2023-05-04] MEDS ORDERED: BENZOCAINE/MENTHOL (CHLORASEPTIC ) LOZENGE MM PRN (21:46)
[2023-05-04] MEDS ORDERED: BISMUTH SUBSALICYLATE 524 MG/30 ML PO PRN (21:46)
[2023-05-04] MEDS ORDERED: NALOXONE HCL 0.4 MG/ML VIAL IM PRN (21:46)
[2023-05-04] MEDS ORDERED: LOPERAMIDE HCL 2 MG CAPSULE PO PRN (21:46)
[2023-05-04] MEDS ORDERED: MELATONIN 5 MG TABLETS PO SCH (22:00)
[2023-05-04] MEDS ORDERED: INSULIN (NOVOLOG) ASPART 100 UNITS/ML 10ML VIAL ONE (22:50)
[2023-05-04] MEDS: INSULIN SLIDING SCALE (NOVOLOG) 1 VIAL SQ SCH (23:00)
[2023-05-04] MEDS ORDERED: cloNIDine HCL 0.1 MG TABLET PO ONE (23:15)
[2023-05-04] MEDS ORDERED: cloNIDine HCL 0.1 MG TABLET ONE (23:27)
[2023-05-04] MEDS: THIAMINE HCL 100 MG TABLET (FP) PO SCH (23:45)
[2023-05-05] MEDS: INSULIN SLIDING SCALE (NOVOLOG) 1 VIAL SQ SCH ×2 (07:14→17:14)
[2023-05-05] MEDS ORDERED: ALBUTEROL SO4 HFA INHALER IH PRN (08:11)
[2023-05-05] MEDS: METHOCARBAMOL 500 MG TABLET PO PRN (10:14)
[2023-05-05] MEDS: PRENATAL VITAMINS W/ FOLIC ACID TABLET (FP) PO SCH (10:14)
[2023-05-05] MEDS: NICOTINE 14 MG/24 HOURS TOPICAL PATCH TD SCH (10:14)
[2023-05-05] MEDS: ASPIRIN COATED 81 MG TABLET.EC PO SCH (10:14)
[2023-05-05] MEDS: amLODIPine BESYLATE 10 MG TABLET (FP) PO SCH (10:14)
[2023-05-05 11:02] LABS: HEMATOCRIT 39.3 % (35.4-49); MCH 32.3 pg (25.7-33.7); MCHC 35.7 g/dl (32.0-35.9); MEAN CELL VOLUME 90.3 fl (80-96); MEAN PLT VOLUME 8.4 fl (7.5-11.1); PLATELET COUNT 50 10^3/uL (134-434); RBC 4.35 M/mm3 (4.00-5.60); RDW 13.7 % (11.9-15.9)
[2023-05-05 11:09] LABS: CALCIUM 8.6 mg/dL (8.5-10.1)
[2023-05-05 11:10] LABS: ALBUMIN 3.4 g/dl (3.4-5.0); BLOOD UREA NITROGEN 7.8 mg/dL (7-18)
[2023-05-05 11:13] LABS: CREATININE 0.6 mg/dL (0.55-1.3)
[2023-05-05 11:14] LABS: TOT PROT 6.9 g/dl (6.4-8.2)
[2023-05-05 11:17] LABS: BILIRUBIN,TOTAL 0.9 mg/dL (0.2-1)
[2023-05-05] MEDS: BUPRENORPHINE/NALOXONE 8 MG/2 MG FILM PACKET SL SCH (13:19)
[2023-05-05] MEDS: POTASSIUM CHLORIDE ORAL LIQUID 20 MEQ/15 ML PO SCH ×2 (13:19→17:14)
[2023-05-05] MEDS ORDERED: INSULIN (NOVOLOG) ASPART 100 UNITS/ML 10ML VIAL ONE (17:11)
[2023-05-05] MEDS: metFORMIN HCL 500 MG TABLET (FP) PO SCH (17:14)
[2023-05-05] MEDS: traZODone HCL 50 MG TABLET (FP) PO SCH (21:39)
[2023-05-05] MEDS: THIAMINE HCL 100 MG TABLET (FP) PO SCH (21:40)
[2023-05-06] MEDS: metFORMIN HCL 500 MG TABLET (FP) PO SCH ×2 (06:15→17:06)
[2023-05-06] MEDS: INSULIN SLIDING SCALE (NOVOLOG) 1 VIAL SQ SCH (06:52)
[2023-05-06] MEDS ORDERED: chlordiazePOXIDE HCL 10 MG CAPSULE PO PRN (09:16)
[2023-05-06] MEDS: NICOTINE 14 MG/24 HOURS TOPICAL PATCH TD SCH (10:25)
[2023-05-06] MEDS: BUPRENORPHINE/NALOXONE 8 MG/2 MG FILM PACKET SL SCH (10:27)
[2023-05-06] MEDS: PRENATAL VITAMINS W/ FOLIC ACID TABLET (FP) PO SCH (10:28)
[2023-05-06] MEDS: chlordiazePOXIDE HCL 10 MG CAPSULE PO SCH ×3 (10:28→22:36)
[2023-05-06] MEDS: ASPIRIN COATED 81 MG TABLET.EC PO SCH (10:28)
[2023-05-06] MEDS: amLODIPine BESYLATE 10 MG TABLET (FP) PO SCH (10:28)
[2023-05-06] MEDS: INSULIN (NOVOLOG) ASPART 100 UNITS/ML 10ML VIAL SQ SCH ×3 (11:26→22:36)
[2023-05-06] MEDS: POTASSIUM CHLORIDE ORAL LIQUID 20 MEQ/15 ML PO SCH ×2 (12:20→17:05)
[2023-05-06] MEDS: THIAMINE HCL 100 MG TABLET (FP) PO SCH (22:35)
[2023-05-06] MEDS: traZODone HCL 50 MG TABLET (FP) PO SCH (22:36)
[2023-05-07] MEDS ORDERED: chlordiazePOXIDE HCL 10 MG CAPSULE PO SCH (05:00)
[2023-05-07 06:02] VITALS: RESP 17
[2023-05-07] MEDS: metFORMIN HCL 500 MG TABLET (FP) PO SCH (06:35)
[2023-05-07] MEDS: INSULIN (NOVOLOG) ASPART 100 UNITS/ML 10ML VIAL SQ SCH ×2 (06:56→11:25)
[2023-05-07 09:33] VITALS: BP 140/72; PULSE 97; TEMP 97.3
[2023-05-07] MEDS: PRENATAL VITAMINS W/ FOLIC ACID TABLET (FP) PO SCH (09:56)
[2023-05-07] MEDS: NICOTINE 14 MG/24 HOURS TOPICAL PATCH TD SCH (09:57)
[2023-05-07] MEDS: amLODIPine BESYLATE 10 MG TABLET (FP) PO SCH (09:57)
[2023-05-07] MEDS: ASPIRIN COATED 81 MG TABLET.EC PO SCH (09:57)
[2023-05-07] MEDS: METHOCARBAMOL 500 MG TABLET PO PRN (09:57)
[2023-05-07] MEDS: BUPRENORPHINE/NALOXONE 8 MG/2 MG FILM PACKET SL SCH (09:58)
== END 2023-05-07 12:05 | disposition home or self-care (01) | DRG 773 ==
LOC: YASAS 12:57 → Y6N 22:02 → UNDOADMIN 22:02
PROVIDERS: ADMIT Allergy & Immunology; ATTEND Surgery
PROC: HZ2ZZZZ Detoxification Services for Substance Abuse Treatment (ICD-10-PCS; principal; 2023-05-04)
DX: F10.230 Alcohol dependence with withdrawal, uncomplicated (principal); F11.20 Opioid dependence, uncomplicated; F17.210 Nicotine dependence, cigarettes, uncomplicated; F19.282 Other psychoactive substance dependence with psychoactive substance-induced sleep disorder; F19.24 Other psychoactive substance dependence with psychoactive substance-induced mood disorder; G47.00 Insomnia, unspecified; E87.6 Hypokalemia; E78.5 Hyperlipidemia, unspecified; E11.9 Type 2 diabetes mellitus without complications; Z79.84 Long term (current) use of oral hypoglycemic drugs; I10 Essential (primary) hypertension; J44.9 Chronic obstructive pulmonary disease, unspecified; E66.9 Obesity, unspecified; Z68.29 Body mass index [BMI] 29.0-29.9, adult
CPT/HCPCS: 36415; 80053; 82962; 83036; 84132; 84450; 85027; 86780; 87635; 93005; 93010